=== PATIENT | female | born 1950 | race Caucasian/White ===

== ENCOUNTER 2024-10-08 08:20 | Emergency (ER) | payer MEDICARE, SELFPAY ==
--- OUTSIDE RECORDS SUMMARY | 2024-10-08 08:22 | XMS_ITS | Referral Summary ---
Author Organization [facility] [address] Address [address] [place] [address] Phone Care Team Providers Care Polishing Machine Tender Name Role Phone Winston Raygoza MD Primary Care Provider [phone] Medications levothyroxine sodium (TIROSINT) 112 mcg capsule take 1 capsule (112MCG) by oral route every day 0 04/19/2012 Active pravastatin (PRAVACHOL) 20 mg tablet Take 20 mg by mouth daily. Active alendronate (FOSAMAX) 35 mg tablet TAKE 1 TABLET BY MOUTH EVERY 7 DAYS TAKE IN THE MORNING WITH A FULL GLASS OF WATER, ON AN EMPTY STOMACH, AND DO NOT TAKE ANYTHING ELSE BY MOUTH OR LIE DOWN FOR THE NEXT 30 MIN. 12 tablet 3 09/18/2022 Active Active Problems Problem Noted Date Diagnosed Date Hypercholesterolemia 05/02/2013 Overview (10/14/2016): Hypercholesterolemia Hypothyroidism 05/02/2013 Overview (10/15/2016): Hypothyroid Osteopenia of thigh 05/02/2013 Overview (10/15/2016): Osteoporosis Social History Tobacco Use Types Packs/Day Years Used Date Smoking Tobacco: Former Smokeless Tobacco: Never Alcohol Use Standard Drinks/Week Comments No 0 (1 standard drink = 0.6 oz pur e alcohol) Comments No Sex and Gender Information Value Date Recorded Sex Assigned at Not on file Legal Sex Female 6:06 AM TRANSPORT ANALYST Gender Identity Not on file Sexual Orientation Not on file Occupation Industry Job Start Date Job End Date N/A Not on file Not on file Not on file Last Filed Vital Signs Vital Sign Reading Time Taken Comments Blood Pressure 132/70 06/27/2021 1:58 PM TRANSPORT ANALYST Pulse 73 04/03/2018 8:29 AM CDT Temperature 36.9 C (98.4 F) 04/03/2018 8:29 AM CDT Respiratory Rate 16 04/03/2018 8:29 AM CDT Oxygen Saturation 100% 04/03/2018 8:29 AM CDT Inhaled Oxygen Concentration - - Weight 80.7 kg (178 lb) 06/27/2021 1:58 PM TRANSPORT ANALYST Height 165.1 cm (5' 5 ) 06/27/2021 1:58 PM TRANSPORT ANALYST Body Mass Index 29.62 06/27/2021 1:58 PM TRANSPORT ANALYST Plan of Treatment Not on file Insurance [id number] [place] [address] MEDICARE MEDICARE COUNTS INCLUDE 234 BEDS AT THE [facility] Care Teams Polishing Machine Tender Relationship Specialty Start Date End Date Winston Raygoza MD [address] [place] [address] PCP - General 05/02/13
--- OUTSIDE RECORDS SUMMARY | 2024-10-08 08:22 | XMS_ITS | Continuity of Care Document ---
Author Organization [facility] Address [address] [place] [address] Phone Care Team Providers Care Historic Sites Supervisor Name Role Phone Abram Roy MD Unavailable Unavailable Allergies, Adverse Reactions, Alerts Substance Reaction Status Criticality No Known Allergies Active No Inform ation Medications Medication Instructions Dosage Effective Dates (start - stop) Status Comments pravastatin 40 mg tablet take 1 tablet by oral route every day 40 MG - Active Tirosint 125 mcg capsule take 1 capsule by oral route every day 125 MCG - Active Procedures Procedure Date Refraction Post-op Follow-up Visit No Charge Refraction No Charge Optomap Fundus Photos 020 After Cataract Laser Surgery Post-op Follow-up Visit No Charge Refraction Fundus Photography W/ Report After Cataract Laser Surgery Eye Exam & Treatment No Charge Refraction Post-op Follow-up Visit Post-op Follow-up Visit Remove Cataract, Post Op Care 8 Remove Cataract, Insert Lens,Comanaged J IOLMaster-Professional No Charge Refraction Post-op Follow-up Visit Post-op Follow-up Visit Remove Cataract, Post Op Care 7 Remove Cataract, Insert Lens,Comanaged D IOLMaster-Professional No Charge Orbscan No Charge IOL Master No Charge Refraction IOLMaster-Technical No Charge Orbscan Eye Exam, New Patient Eye Exam, New Patient Advance Directives Directive Yes / No Effective Date File Name No Information Encounters Encounter Description Practice Location Reason(s) For Visit Diagnoses Date Provider Providers Copied on Encounter [facility], [id number] [place] [address] [address], [place], [place], [id number], tel:[phone] [place] Professional 2 week s/p YAG PC (chief complaint) Encounter for examination following surgery 0 Kirill Valverde. [address] [place], [place], [id number], [place]. tel:[phone] Referring Provider: Meghan Ball, [address] [place], [address]. tel:[phone] [facility], [address], [place], [id number], [place] tel:[phone] [place] Professional YAG (chief complaint) Encounter for examination following surgeryOther secondary cataract, left eye 0 Kirill Valverde. [address] [facility] [place], [address], [place]. tel:[phone] Referring Provider: Abram Grace, [address] [facility] [place], [address] . tel:[phone] [facility], [address], [place], [place], [address], tel:[phone] [address] [place] Professional YAG PC (chief complaint) Presence of intraocular lensOther secondary cataract, right eyeOther secondary cataract, left eyeDrusen (degenerative ) of macula, right eye 0 Kirill Valverde. [address] [facility] [place], [address], [place]. tel:[phone] Referring Provider: Abram Grace, [address] [facility] A, [place], [address] . tel:[phone] [facility], [address], [place], [place], [address], [place] tel:[phone] DANII Professional 3 wk CE PO (chief complaint) Encounter for examination following surgery 8 Lizzy Christianson. [address] [place], [address], [place]. tel:[phone] Referring Provider: Meghan Ball, [address] [place] [address], [address]. tel:[phone] [facility], [address] [place] [address] [address], [place], [place], [id number], [place] [phone] [address] [place] Professional 1 WK PCIOL Post OP (chief complaint) No Information 8 Lizzy Christianson. [address] [place], [address], [place]. tel:[phone] Referring Provider: Meghan Ball, [address] [place], [address]. tel:[phone] [facility], [address], [place], [place], [address], [place] [phone] DANII Professional Post-Op (chief complaint) No Information 8 Lizzy Christianson. [address] [place], [address], [place]. tel:[phone] Referring Provider: Meghan Ball, [address] [place], [address]. tel:[phone] [facility], [address], [place], [place], [address], [place] tel: [facility] No Information 8 Lizzy Christianson. [address] [place], [place], [facility], [place]. tel:[phone] Referring Provider: Meghan Ball, [address] [place] [address], [address]. tel:[phone] [facility], [address] [place] [address] [address], [place], [place], [id number], tel: SEC [facility] No Information Lizzy Christianson. [address] [place], [place], [facility], [place]. tel:[phone] Referring Provider: Meghan Ball, [address] [place] [address], [facility]. tel:[phone] [facility], [address] [place] [address] [address], [place], [place], [address], [place] tel:[phone] [address] [place] Professional f/u exam, postop (chief complaint) No Information 7 Juan OD Disha. [address] [place], [address], [place]. tel:[phone] Referring Provider: Meghan Ball, [address] [place] [address], [facility]. tel:[phone] [facility], [address], [place], [place], [address], tel:[phone] [address] [place] Professional Post-Op (chief complaint) No Information 7 Juan SHERYL Gauthier. [address] [place] [address] [place], [address], [place]. tel:[phone] Referring Provider: Meghan Ball, [address] [place] [address], [address]. tel:[phone] [facility], [address], [place], [place], [address], [place] tel:[phone] [address] [place] Professional post op (chief complaint) No Information Dec-0 6 7 Juan Gauthier. [address] [facility], [place], [address], [place]. tel:[phone] Referring Provider: Meghan Ball, [address] [place], [address]. tel:[phone] [facility], [address], [place], [place], [address], [place] tel:[phone] [facility] No Information Jun-0 7 Lizzy Christianson. [address] [place], [address], [place]. tel:[phone] Referring Provider: Meghan Ball, [address] [place], [address]. tel:[phone] [facility], [address], [place], [place], [address], [place] tel:[phone] [facility] No Information Dec-0 7 Lizzy Christianson. [address] [place], [address], [place]. tel:[phone] Referring Provider: Meghan Ball, [address] [place], [address]. tel:[phone] [facility], [address], [place], [place], [address], [place] tel:[phone] [address] [place] Professional Testing only (chief complaint) No Information 7 Lizzy Christianson. [address] [place], [address], [place]. tel:[phone] Referring Provider: Meghan Ball, [address] [place], [address]. tel:[phone] [facility], [address] [facility] [address], [place], [place], [address], tel:[phone] [address] DANII Professional Cataract evaluation (chief complaint) No Information 3 0-201 7 Lizzy Christianson. [address] [place], [address], [place]. tel:[phone] Referring Provider: Meghan Ball, [address] [place], [address]. tel:[phone] [facility], [address] [facility] [address], [place], [place], [address], tel:[phone] SEC [address] DANII Professional No Information 3 0- 7 Lizzy Christianson. [address] [place], [address], [place]. tel:[phone] [facility], [address] [facility] [address], [place], [place], [address], tel:[phone] [address] FOY Professional No Information Jan-0 6-201 0 Deyanira Amaya. [address] [facility] [place], [address], . tel:[phone] Family History Family Member Type Diagnosis Age At Onset No Information Payers Payer name Insurance type Covered democrat ID Authoriza tion(s) No Information Social History Type Description Quantity Date Captured Comments Alcohol Use Details No Caffeine Use Details Tobacco Use Status Current non-smoker 20 Smoking Status Never smoker Non-Smoking Tobacco Use Details : No Details Available : No Details Available Sex Female Chief Complaint And Reason For Visit From encounter dated '04/12/2020 07:45'. 2 week s/p YAG PC (chief complaint). Description: The 70 year old female presents for evaluation of2 week s/p YAG PC in the left eye. Patient states VA is good she does have a floater in the left eye since the laser. Reason For Referral Reason For Referral No Information Plan Of Treatment Date Type Action Status Patient Education Learning About YAG Lase r Capsulotomy completed Patient Education Learning About YAG Lase r Capsulotomy completed History Of Present Illness Encounter Date Complaint History Of Prese nt Illness 2 week s/p YAG PC The 70 year ol d female presents for evaluation of 2 week s/p YAG PC in the left eye. Patient states VA is good she does have a floater in the left eye since the laser. YAG The 70 year old female presents for evaluation of YAG in the left eye and s/p YAG PC OD. Patient states VA is much better since the laser in the right eye. Patient states she is unable to drive at night due to VA in the left eye. Patient has trouble seeing road signs and seeing in bright lights x 1 year. YAG PC The 69 year old female presents for evaluation of YAG PC in the right eye and left eye. Hx of PCIOL OU and RPE mottling OS. Patient has difficulty seeing at night due to glare with both eyes x 1 year. Patient has difficulty seeing print on the television with both eyes x years. 3 wk CE PO The 67 year old female presents for 3 wk CE PO in the left eye. Pt reports she is using AFT QID OD, Ketorolac QID OS and Pred QD OS. Pt reports she can see a lot better, OS, since CE. Pt denies any pain, irritation or discomfort today, OU. 1 WK PCIOL Post OP The 67 year o ld female presents for 1 WK PCIOL Post OP in the left eye. PO instructions and gtts reviewed and understood by patient. Pt using Ketorolac qid and Pred tid. Pt states vision is doing fine. Pt denies any pain or discomfort at this time. Post-Op The 67 year old female presents for a 1 day post op CE OS. Patient is using Ofloxacin qid OS and begin Pred and Ketorolac qid OS. Patient c/o flashing light (temporaly) OS. Patient denies any pain or discomfort. f/u exam, postop The 67 year old female presents for a 3 week phaco and PCIOL postop in the right eye. The patient is currently using Pred QD OD and Ketorolac TID OD. The patient states OD is doing good and vision has significantly improved. The patient notes a large difference between the two eyes and complains of glare OS. Drop and post-op instructions reviewed. Post-Op The 67 year old female presents for a 1 week post op CE OD. Patient is using Pred tid and Ketorolac qid OD. Patient states OD is doing good. post op The 67 year old female presents for a 1 day post op CE OD. Patient is using Ofloxacin qid OD and begin Pred qid and Ketorolac qid OD. Patient denies any pain or discomfort. Testing only The 67 year old female presents for Testing only in the right eye and left eye. Repeat IOL Master and Pentacam. Cataract evaluation The 67 year old female presents for Cataract evaluation in the right eye and left eye. Pt reports she had eye Surgery, OS, to remove something that was growing on her eye, many years ago and CAT OU. Pt report she has never had any ocular injuries, doesn't use any gtts and no pain, irritation or discomfort today, OU. Pt reports she has a hard time driving at night due to glare from oncoming headlights, OU, x 3 mos. Pt reports she has a hard time reading small print up close, recognizing people's faces from across the street, OU even when she is wearing her glasses, OU, x 3 mos. Functional Status Date Functional Assessmen t No Information Instructions Date Instruction Additional Infor annalise Impression/Plan Impression/Plan Impression/Plan Impression/Plan - PO W 3 s/p CE/PCIOL OS. Doing well. Continue post op drops as instructed. Recommend artificial tears QID OU. Return to [facility] in 2 weeks for refraction and new glasses. Discussed PCO and Yag PC as treatment if ever indicated in the future. RTC 6 mths for CEE or sooner with problems. Follow up - Return i n 6 months with Meghan Ball M.D. for Complete Exam. Follow up - as scheduled Impression/Plan - On e week post-op s/p CE/PCIOL OS- IOL in good position; healing well; IOP well controlled. - Activities restrictions reviewed. - Medication instillation and post op instructions reviewed. - Patient will return as scheduled or sooner with problems. Follow up - as scheduled Impression/Plan - PO D 1 s/p CE/PCIOL OS Doing well. IOP well controlled. Patient understands light is likely edge of IOL and will improve over time. Post op med instructions reviewed with pt, and post op instructions discussed. Discussed warning signs and symptoms and need for immediate exam should these occur. Pt understands shield use, return to clinic for post op exam as scheduled. Continue with CE OS on 07/13 as sc heduled Related to Encntr for f/u exam aft trtmt for cond oth than malig neoplm Encntr for f/u exam aft trtmt for cond oth than malig neoplm - Medication use reviewed Related to Encntr for f/u exam aft trtmt for cond oth than malig neoplm Encntr for f/u exam aft trtmt for cond oth than malig neoplm - Post op instructions reviewed and understood by patient Related to Encntr for f/u exam aft trtmt for cond oth than malig neoplm Impression/Plan - Th ree week post-op s/p CE/PCIOL OD- IOL in great position; healing well- IOP well controlled- Activities restrictions and shield use reviewed- Medication instillation and post op instructions reviewed- Okay to continue with CE OS on 07/13- Patient will return as scheduled, sooner if any problems.Dry Eye OD > OS- Discussed the use of ATs PRN OD once all post-op drops are complete- Sample of ATs given- Monitor Related to Encntr for f/u exam aft trtmt for cond oth than malig neoplm Follow up - Continue with CE OS on 07/13 as scheduled Related to Encntr for f/u exam aft trtmt for cond oth than malig neoplm Return as scheduled, sooner if p roblems Related to Encntr for f/u exam aft trtmt for cond oth than malig neoplm Encntr for f/u exam aft trtmt for cond oth than malig neoplm - Post op instructions reviewed and understood by patient Related to Encntr for f/u exam aft trtmt for cond oth than malig neoplm Impression/Plan - On e week post-op s/p CE/PCIOL OD- IOL in great position; healing well- IOP well controlled- Activities restrictions and shield use reviewed- Medication instillation and post op instructions reviewed- Patient will return as scheduled, sooner if any problems. Related to Encntr for f/u exam aft trtmt for cond oth than malig neoplm Follow up - Return a s scheduled, sooner if problems Related to Encntr for f/u exam aft trtmt for cond oth than malig neoplm Return to clinic as scheduled or sooner with problems. Related to Encntr for f/u exam aft trtmt for cond oth than malig neoplm Encntr for f/u exam aft trtmt for cond oth than malig neoplm - Medication use reviewed Related to Encntr for f/u exam aft trtmt for cond oth than malig neoplm Encntr for f/u exam aft trtmt for cond oth than malig neoplm - Post op instructions reviewed and understood by patient Related to Encntr for f/u exam aft trtmt for cond oth than malig neoplm Impression/Plan - 1 Day Post-Op s/p phaco and PCIOL OD- PCIOL in good position.- Patient is healing well.- Vision and IOP stable.- Discussed continued improvement in vision as eye continues to heal.- Medication instillation, shield use and restrictions reviewed with patient.- Return to clinic as scheduled or sooner with problems. Related to Encntr for f/u exam aft trtmt for cond oth than malig neoplm Follow up - Return t o clinic as scheduled or sooner with problems. Related to Encntr for f/u exam aft trtmt for cond oth holli mckenzie Impression/Plan - Ca taracts surgery measurements reviewed with patient- Discussed R/B/A of CE at last visit and answered additional questions today- Lifestyle lens options discussed- Discussed that after running calculations I would not recommend a toric, but we can consider a LRI post-op. - Patient aware she will need reading glasses- Schedule OD first and OS following Repeat OCT MAC, IOL master, and refraction Related to Combined forms of age-related cataract, right eye Combined forms of ag e-related cataract, right eye - Educational material provided Related to Combined forms of age-related cataract, right eye Impression/Plan - Ca taract presence and progression discussed. Cataracts account for the patients complaints. Discussed all risks, benefits, procedures and recovery. Vision will not significantly improve with a change in glasses and we recommend not changing. The patient understands this is an elective procedure and may proceed when desired. The patients questions were answered and demonstrates understanding of our discussion. Patient desires to have surgery, recommend phacoemulsification with intraocular lens. Discussed astigmatism with pt. Standard monofocal IOL.- Visually significant cataracts OU- Will plan on CE OD first then OS following - Dilates 7.5 mm OD and 7.0 mm OS- No trauma, Hx of Pterygium removal OD - No ASA/Plavix/Coumadin- No Flomax- No History of DM, HTN, COPD, Asthma, RLS, BURAK- Able to lay flat for 30 minutes- Special considerations for cataract surgery: topical- Special considerations for lens: will discuss at next visit- Return in 2 weeks for repeat measurements, IOL master, Pentacam, and OCT MAC after using Artificial tears Related to Combined forms of age-related cataract, right eye Impression/Plan - Co ndition appears to be mild. Treatment not needed at this time. Will monitor. Related to RPE mottling of macula Follow up - Return i n 2 weeks for repeat measurements IOL master, Pentacam and OCT MAC Related to Combined forms of age-related cataract, right eye Impression/Plan - Re commend artificial tears or gel ointment QID for dry eyes. Related to Dry eye syndrome of bilateral lacrimal glands Assessments Type Assessment Date assessment Encounter for examination follow ing surgery Patient Care Teams Name Effective Dates (start - stop) Status Members No Information
--- OUTSIDE RECORDS SUMMARY | 2024-10-08 08:22 | XMS_ITS | Clinical Summary ---
Author Organization [facility] [address] Address [address] [place] [address] Phone Care Team Providers Care Director Embalmer Name Role Phone Winston Raygoza MD Primary Care Provider [phone] Medications levothyroxine sodium (TIROSINT) 112 mcg capsule [...] Osteopenia of thigh 05/02/2013 Overview (10/15/2016): Osteoporosis Surgical History Surgery Date Site/Laterality Comments TUBAL LIGATION Tubal ligation CATARACT EXTRACTION 06/11/2017 - 07/11/2017 Medical History Medical History Date Comments Thyroid disease High cholesterol Family History Medical History Relation Name Comments Dementia Father Dementia; Allergies Other 1 Family history of Allergies; Other Other 2 No family histo ry of breast cancer; Relation Name Status Comments Father Other 1 Other 2 Social History Tobacco Use Types Packs/Day Years Used Date Smoking Tobacco: Former Smokeless Tobacco: Never Alcohol Use Standard Drinks/Week Comments No 0 (1 standard drink = 0.6 oz pur e alcohol) Comments No Sex and Gender Information Value Date Recorded Sex Assigned at Not on file Legal Sex Female 6:06 AM GROUND SUPPORT EQUIPMENT FITTER Gender Identity Not on file Sexual Orientation Not on file Occupation Industry Job Start Date Job End Date N/A Not on file Not on file Not on file Obstetrics History Para Term AB IAB SAB Ectopic Multiple Livin g Live Births 1 1 1 0 0 1 Date Outcome GA Total Labor Labor/2nd/3rd Weight Sex Type Anes PTL Wendy A1 A5 Name Clin Term Last Filed Vital Signs Vital Sign Reading Time Taken Comments Blood Pressure 132/70 06/27/2021 1:58 PM GROUND SUPPORT EQUIPMENT FITTER Pulse 73 04/03/2018 8:29 AM CDT Temperature 36.9 C (98.4 F) 04/03/2018 8:29 AM CDT Respiratory Rate 16 04/03/2018 8:29 AM CDT Oxygen Saturation 100% 04/03/2018 8:29 AM CDT Inhaled Oxygen Concentration - - Weight 80.7 kg (178 lb) 06/27/2021 1:58 PM GROUND SUPPORT EQUIPMENT FITTER Height 165.1 cm (5' 5 ) 06/27/2021 1:58 PM GROUND SUPPORT EQUIPMENT FITTER Body Mass Index 29.62 06/27/2021 1:58 PM GROUND SUPPORT EQUIPMENT FITTER Plan of Treatment Not on file Insurance [facility] MEDICARE MEDICARE [facility] Care Teams Director Embalmer Relationship Specialty Start Date End Date Winston Raygoza MD [address] [place] [address] PCP - General 05/02/13
--- OUTSIDE RECORDS SUMMARY | 2024-10-08 08:22 | XMS_ITS | Encounter Summary ---
Author Organization [facility] Address [address] [place] [address] Phone Care Team Providers Care Video Game Creator Name Role Phone Winston Raygoza MD Primary Care Provider [phone] Reason for Visit * Reason Comments Medication Refill Encounter Details Date Type Department Care Team (Late st Contact Info) Description 12/12/2023 Refill [facility] - Internal Medicine - [place] [address] [place] [phone] Winston Raygoza MD [address] [place] [address] Medication Refill Social History Tobacco Use Types Packs/Day Years Used Date Smoking Tobacco: Never Passive Smoke Exposure: Never Smokeless Tobacco: Never Alcohol Use Standard Drinks/Week Comments Never 0 (1 standard drink = 0.6 oz pur e alcohol) [facility] Utilities Answer Date Recorded In the past 12 months has [employer], gas, oil, or water [employer] threatened to shut off services in your home? No 08/05/2023 Social Connection and Isolat ion Panel [NHANES] Answer Date Recorded In a typical week, how many times do you talk on the phone with family, friends, or neighbors? More than three times a week 08/05/2023 How often do you get togethe r with friends or relatives? More than three times a week 08/05/2023 How often do you attend [facility] or rastafari services? More than 4 times per year 08/05/2023 Do you belong to any clubs o r organizations such as yarsanism groups, unions, fraternal or athletic groups, or school groups? No 08/05/2023 How often do you attend meet ings of the clubs or organizations you belong to? More than 4 times per year 08/05/2023 Are you , , di vorced, , never , or living with a partner? 08/05/2023 AUDIT-C Answer Date Recorded Q1: How often do you have a drink containing alcohol? Never 08/05/2023 Q2: How many drinks containi ng alcohol do you have on a typical day when you are drinking? Patient does not drink Q3: How often do you have si x or more drinks on one occasion? Never 08/05/2023 Overall Financial Resource Strain (CARDIA) Answe r Date Recorded How hard is it for you to pa y for the very basics like food, housing, medical care, and heating? Not hard at all 08/05/2023 PHQ-2 Answer Date Recorded Total Score - Questions 1-9 0 07/13 [facility] of Occupat ional Health - Occupational Stress Questionnaire Answer Date Recorded Do you feel stress - tense, restless, nervous, or anxious, or unable to sleep at night because your mind is troubled all the time - these days? Not at all 08/05/2023 Exercise Vital Sign Answer Date Recorde d On average, how many days pe r week do you engage in moderate to strenuous exercise (like a brisk walk)? 0 days 08/05/2023 On average, how many minutes do you engage in exercise at this level? 0 min 08/05/2023 Hunger Vital Sign Answer Date Recorded Within the past 12 months, y ou worried that your food would run out before you got the money to buy more. Never true 08/05/19 24 Within the past 12 months, t he food you bought just didn't last and you didn't have money to get more. Never true 08/05/2023 PRAPARE - Transportation Answer Date Re corded In the past 12 months, has l ack of transportation kept you from medical appointments or from getting medications? No 07/13 In the past 12 months, has l ack of transportation kept you from meetings, work, or from getting things needed for daily living? No 08/05/2023 Housing Stability Vital Sign Answer Andrew e Recorded In the last 12 months, was t here a time when you were not able to pay the mortgage or rent on time? No 08/05/2023 In the last 12 months, how many places have you lived? 1 08/05/2023 In the last 12 months, was t here a time when you did not have a steady place to sleep or slept in a skilled nursing (including now)? No 08/05/2023 Sexually Active Control Partners Comments Not Currently Comments No Sex and Gender Information Value Date Recorded Sex Assigned at Not on file Legal Sex Female 9:50 PM CDT Gender Identity Not on file Sexual Orientation Not on file documented as of this encounter Miscellaneous Notes * Telephone Encounter - Esthela Jimenez RN - 12/13/2023 9:23 AM CDT Medication(s) refilled and signed per [facility] Chronic Medication Refill Standing Order for Pediatricand Adult Patients. Requested Prescriptions Pending Prescriptions Disp Refills levothyroxine (SYNTHROID) 100 MCG Tablet [Pharmacy Med Name: LEVOTHYROXINE 100 MCG TABLET] 90 Tablet 0 Sig: TAKE 1 TABLET BY MOUTH EVERY DAY Thyroid Hormones Protocol Passed - 12/12/2023 7:32 AM Passed - Visit with relevant provider in past 12 months or upcoming 90 days Recent Visits Date Type Provider Dept 08/05/23 Office Visit Winston Raygoza MD [facility] 02/02/23 Office Visit Winston Raygoza MD [facility] [place] Showing recent visits within past 365 days and meeting all other requirements Future Appointments Date Type Provider Dept 02/03/24 Appointment Winston Raygoza MD [facility] Showing future appointments within next 90 days and meeting all other requirements Passed - Normal TSH in past 12 months TSH Date Value Ref Range Status 01/09/2023 2.230 0.270 - 4.200 mIU/L Final documented in this encounter Plan of Treatment Upcoming Encounters Date Type Department Care Team (Late st Contact Info) Description 10/27/2024 9:30 AM CDT [facility]ointment [facility] [address] [place] [address] Winston Raygoza MD [address] [place] [address] Discharge Disposition: Discharged to home or Selfcare 02/05/2025 8:30 AM CDT [facility] - [facility] - [place] [address] [place] [address] Winston Raygoza MD [address] [place] [address] documented as of this encounter Visit Diagnoses Not on filedocumented in this encounter Additional Health Concerns Assessment Noted Time PHQ-9 Depression Total Score: 0 08/05/19 24 8:03 AM BOBBIN WINDER documented as of this encounter Care Teams Video Game Creator Relationship Specialty Start Date End Date Winston Raygoza MD [address] [place] [address] PCP - General Internal Medicine 06/15/15 documented as of this encounter
--- OUTSIDE RECORDS SUMMARY | 2024-10-08 08:22 | XMS_ITS | Encounter Summary ---
Author Organization [facility] Address [address] [place] [address] Phone Care Team Providers Care Mold Stamper And Repairer Name Role Phone Winston Raygoza MD Primary Care Provider [phone] Reason for Visit * Reason Comments Medication Refill Encounter Details Date Type Department Care Team (Late st Contact Info) Description 12/22/2023 Refill [facility] - [place] - [place] [address] [place] [phone] Winston Raygoza MD [address] [place] [address] Medication Refill Social History Tobacco Use Types Packs/Day Years Used Date Smoking Tobacco: Never Passive Smoke Exposure: Never Smokeless Tobacco: Never Alcohol Use Standard Drinks/Week Comments Never 0 (1 standard drink = 0.6 oz pur e alcohol) [facility] Utilities Answer Date Recorded In the past 12 months has [employer], gas, oil, or water [employer] threatened to shut off services in your [...] week 08/05/2023 How often do you attend [facility] or mosque services? More than 4 times per year 08/05/2023 Do you belong to any clubs o r organizations such as restorationist groups, unions, fraternal or athletic groups, or [...] Total Score - Questions 1-9 0 07/13 [facility] of Occupat ional Health - Occupational Stress [...] place to sleep or slept in a intermediate (including now)? No 08/05/2023 Sexually Active Control Partners Comments Not Currently Comments No Sex and Gender Information Value Date Recorded Sex Assigned at Not on file Legal Sex Female 9:50 PM CDT Gender Identity Not on file Sexual Orientation Not on file documented as of this encounter Miscellaneous Notes * Telephone Encounter - Esthela Jimenez RN - 12/22/2023 3:53 PM CDT Medication(s) refilled and signed per [facility] Chronic Medication Refill Standing Order for Pediatricand Adult Patients. Requested Prescriptions Pending Prescriptions Disp Refills pravastatin (PRAVACHOL) 40 MG Tablet [Pharmacy Med Name: PRAVASTATIN SODIUM 40 MG TAB] 90 Tablet 0 Sig: TAKE 1 TABLET BY MOUTH EVERY DAY AT NIGHT Hmg CoA Reductase Inhibitors Protocol Passed - 12/22/2023 3:09 PM Passed - Visit with relevant provider in past 12 months or upcoming 90 days Recent Visits Date Type Provider Dept 08/05/23 Office Visit Winston Raygoza MD [facility] 02/02/23 Office Visit Winston Raygoza MD [facility] [place] Showing recent visits within past 365 days and meeting all other requirements Future Appointments Date Type Provider Dept 02/03/24 Appointment Winston Raygoza MD [facility] Showing future appointments within next 90 days and meeting all other requirements Passed - Lipid panel in past 12 months LDL Date Value Ref Range Status 01/09/2023 151 (H) 5 - 130 mg/dL Final HDL CHOLESTEROL Date Value Ref Range Status 01/09/2023 55.0 >40 mg/dL Final CHOLESTEROL Date Value Ref Range Status 01/09/2023 235 (H) <=200 mg/dL Final TRIGLYCERIDES Date Value Ref Range Status 01/09/2023 143 <150 mg/dL Final VLDL Date Value Ref Range Status 01/09/2023 29 5 - 55 mg/dL Final CHOL/HDL RATIO Date Value Ref Range Status 01/09/2023 4.3 0.0 - 4.4 Final NON-HDL CHOLESTEROL Date Value Ref Range Status 01/09/2023 180 (H) <130 mg/dL Final Passed - CMP in past 12 months SODIUM Date Value Ref Range Status 01/09/2023 143 136 - 144 mmol/L Final POTASSIUM Date Value Ref Range Status 01/09/2023 3.8 3.5 - 5.1 mmol/L Final CHLORIDE Date Value Ref Range Status 01/09/2023 108 100 - 110 mmol/L Final CO2, VENOUS Date Value Ref Range Status 01/09/2023 26 22 - 32 mmol/L Final ANION GAP Date Value Ref Range Status 01/09/2023 12.8 8.0 - 20.0 mmol/L Final GLUCOSE Date Value Ref Range Status 01/09/2023 100 (H) 70 - 99 mg/dL Final BUN Date Value Ref Range Status 01/09/2023 13 8 - 23 mg/dL Final CREATININE, BLOOD Date Value Ref Range Status 01/09/2023 0.74 0.60 - 1.10 mg/dL Final BUN/CREATININE RATIO Date Value Ref Range Status 01/09/2023 18 12 - 20 ratio Final TOTAL PROTEIN Date Value Ref Range Status 01/09/2023 6.6 6.0 - 8.3 g/dL Final ALBUMIN Date Value Ref Range Status 01/09/2023 4.2 3.5 - 5.2 g/dL Final Comment: The colormetric methods used for the determination of Albumin may lead to falsely elevated test results in patients suffering from renal failure or insufficiency due to interference with other proteins. A/G RATIO Date Value Ref Range Status 01/09/2023 1.8 1.0 - 2.0 Final CALCIUM Date Value Ref Range Status 01/09/2023 8.9 8.9 - 10.3 mg/dL Final T BILI Date Value Ref Range Status 01/09/2023 0.8 <=1.2 mg/dL Final SGOT (AST) Date Value Ref Range Status 01/09/2023 14 <=32 U/L Final SGPT (ALT) Date Value Ref Range Status 01/09/2023 11 <=41 U/L Final ALKALINE PHOSPHATASE Date Value Ref Range Status 01/09/2023 48 35 - 105 U/L Final GFR, EST. NONAFRICAN Date Value Ref Range Status 01/09/2023 >60 >=60 Final GFR, EST. Date Value Ref Range Status 01/09/2023 >60 >=60 Final GFR, ESTIMATED Date Value Ref Range Status 01/09/2023 >60 >=60 Final Comment: Creatinine Clearance is the preferred criteria for selecting drug dose adjustments in renally impaired patients. The GFR is provided as additional pertinent clinical information. GFR is reported in mL/min/1.73 sq m. Calculation based on the Chronic Kidney Disease Epidemiology Collaboration (CKD- EPI) equation refitwithout adjustment for race. IS THE PATIENT REQUIRED TO BE FASTING? Date Value Ref Range Status 01/09/2023 No Final documented in this encounter Plan of Treatment Upcoming Encounters Date Type Department Care Team (Late st Contact Info) Description 10/27/2024 9:30 AM CDT [facility] [address] [place] [address] Winston Raygoza MD [address] [place] [address] Discharge Disposition: Discharged to home or Selfcare 02/05/2025 8:30 AM CDT [facility] - [place] [address] [place] [address] Winston Raygoza MD [address] [place] [address] documented as of this encounter Visit Diagnoses Not on filedocumented in this encounter Additional Health Concerns Assessment Noted Time PHQ-9 Depression Total Score: 0 08/05/19 24 8:03 AM HEALTHCARE REPRESENTATIVE documented as of this encounter Care Teams Mold Stamper And Repairer Relationship Specialty Start Date End Date Winston Raygoza MD [address] [place] [address] PCP - General Internal Medicine 06/15/15 documented as of this encounter
--- OUTSIDE RECORDS SUMMARY | 2024-10-08 08:22 | XMS_ITS | Encounter Summary ---
Author Organization [facility] Address [address] [place] [address] Phone Care Team Providers Care Furniture Sales Associate Name Role Phone Winston Raygoza MD Primary Care Provider Reason for Visit * Reason Comments Medication Refill Encounter Details Date Type Department Care Team (Late st Contact Info) Description 09/20/2023 Refill [facility] Medical Group - Internal Medicine - [place] [address] [place] [phone] Winston Raygoza MD [address] [place] [address] Medication Refill Social History Tobacco Use Types Packs/Day Years Used Date Smoking Tobacco: Never Passive Smoke Exposure: Never Smokeless Tobacco: Never Alcohol Use Standard Drinks/Week Comments Never 0 (1 standard drink = 0.6 oz pur e alcohol) [facility] Utilities Answer Date Recorded In the past 12 months has [employer] gas, oil, or water [employer] threatened to shut off services in your [...] week 08/05/2023 How often do you attend [facility] or orthodox services? More than 4 times per year 08/05/2023 Do you belong to any clubs o r organizations such as buddhist groups, unions, fraternal or athletic groups, or [...] Total Score - Questions 1-9 0 07/13 [facility] of Occupat ional Health - Occupational [...] place to sleep or slept in a fdc (including now)? No 08/05/2023 Sexually Active Control Partners Comments Not Currently Comments No Sex and Gender Information Value Date Recorded Sex Assigned at Not on file Legal Sex Female 9:50 PM CDT Gender Identity Not on file Sexual Orientation Not on file documented as of this encounter Miscellaneous Notes * Telephone Encounter - Esthela Jimenez RN - 09/20/2023 9:23 AM CDT Medication(s) [facility] Chronic Medication Refill Standing Order for Pediatricand Adult Patients. Requested Prescriptions Pending Prescriptions Disp Refills pravastatin (PRAVACHOL) 40 MG Tablet [Pharmacy Med Name: PRAVASTATIN SODIUM 40 MG TAB] 90 Tablet 0 Sig: TAKE 1 TABLET BY MOUTH EVERY DAY AT NIGHT Hmg CoA Reductase Inhibitors Protocol Passed - 09/20/2023 12:01 AM Passed - Visit with relevant provider in past 12 months or upcoming 90 days Recent Visits Date Type Provider Dept 08/05/23 Office Visit Winston Raygoza MD [facility] [place] 02/02/23 Office Visit [facility] MD [facility] [place] Showing recent visits within past 365 days and meeting all other requirements Future Appointments No visits were found meeting these conditions. Showing future appointments within next 90 days [...] Info) Description 10/27/2024 9:30 AM CDT Appointment [facility] [address] [place] [address] Winston Raygoza MD [address] [place] [address] Discharge Disposition: Discharged to home or Selfcare 02/05/2025 8:30 AM CDT Office Visit [facility] Medical Group - Internal Medicine - [place] [address] [place] [address] Winston Raygoza MD [address] [place] [address] documented as of this encounter Visit Diagnoses Not on filedocumented in this encounter Additional Health Concerns Assessment Noted Time PHQ-9 Depression Total Score: 0 08/05/19 24 8:03 AM LIFE SKILLS CONSULTANT documented as of this encounter Care Teams Furniture Sales Associate Relationship Specialty Start Date End Date Winston Raygoza MD [address] [place] [address] PCP - General Internal Medicine 06/15/15 documented as of this encounter
--- OUTSIDE RECORDS SUMMARY | 2024-10-08 08:22 | XMS_ITS | Clinical Summary ---
Author Organization [facility] Address [address] [place] [address] Phone Care Team Providers Care Technology Auditor Name Role Phone Winston Raygoza MD Primary Care Provider [phone] Allergies No known active allergies Medications levothyroxine (SYNTHROID) 100 MCG Tablet TAKE 1 TABLET BY MOUTH EVERY DAY 90 Tablet 1 03/14/2024 Active celecoxib (CeleBREX) 200 MG Capsule Take 200 mg by mouth daily. Active atorvastatin (LIPITOR) 40 MG Tablet TAKE 1 TABLET BY MOUTH EVERY DAY AT NIGHT 90 Tablet 08/03/2024 Active alendronate (FOSAMAX) 70 MG Tablet Take 1 Tablet by mouth every 7 days. 12 Tablet 3 08/07/2024 Active Vitamin D3 1000 UNIT Tablet Take 25 mcg by mouth daily. Active Calcium Carbonate-Vitam in D (OSCAL 500/200 D-3 PO) Take 1 Tablet by mouth daily. Active omeprazole (PriLOSEC) 20 MG CAPSULE DELAYED RELEASE TAKE 1 CAPSULE BY MOUTH EVERY DAY 90 Capsule 09/01/2024 Active Active Problems Problem Noted Date Diagnosed Date Spinal stenosis of lumbar re gion without neurogenic claudication 06/14/2024 Chronic hand pain, left 02/02/2023 Low bone mass 01/13/2022 GERD without esophagitis 06/21/2020 Mixed hyperlipidemia 12/05/2010 Hypothyroidism 12/05/2010 Resolved Problems Problem Noted Date Diagnosed Date Resolved Date Dysthymia 07/15/2022 08/07/2024 Generalized anxiety disorder 06/01/2017 01/13/2022 Encounters Date Type Department Care Team Description 09/01/2024 Refill [facility] [address] [place] [address] Winston Raygoza MD Medication Refill 08/07/2024 8:15 AM WOOD MECHANIST Office Visit [facility] [address] [place] [address] Winston Raygoza MD Mixed hyperlipidemia (Primary Dx); Osteopenia, unspecified location; Asymptomatic menopausal state; GERD without esophagitis; Other specified hypothyroidism Discharge Disposition: Discharged to home or Selfcare 08/07/2024 Travel 08/03/[facility] [address] [place] [phone] Winston Raygoza MD Medication Refill from Last 3 Months Immunizations Immunization Administration Dates Next Due COVID-19, MRNA, LNP-S, BIVAL ENT , MODERNA, 50 MCG/0.5 ML (12+) 04/19/2023 COVID-19, MRNA, LNP-S, BIVAL ENT , PFIZER, 30 MCG/0.3 ML (12+ Y/O) 03/29/2022 Covid-19, Mrna, Lnp-s, Pf, 3 0 Mcg/0.3 Ml Dose (Pfizer) 03/30/2022 Covid-19, Mrna, Lnp-s, Pf, Yannick-sucrose, 30 Mcg/0.3 Ml (Pfizer) 03/19/2024 Influenza, High-dose, Quadrivalent 03/30,03/29/2022,04/06/2021,2019 Influenza, Quadrivalent, Adjuvanted 04/19/2023 Influenza, high-dose, trivalent, PF 02/2024,04/12/2020,04/12/2020,2018,04/04/2019,04/25/2018,04/24/2018,1 ,04/17/2017,03/31/2016 Pneumococcal Vaccine - 13 Valent 03/31/2016,06/11 Pneumococcal Vaccine Adult - 23 Valent 06/27/2021,06/21/2015 RSV, Recombinant, Protein Bonilla bunit Rsvpref, Adjuvant Recon (Arexvy) 04/19/2023 TDAP Vaccine 09/27/2022 Zoster Vaccine Recombinant 09/27/2022,07/25/2022 Zoster Vaccine, live 2015 Family History Medical History Relation Name Comments No Known Problems Father No Known Problems Mother Relation Name Status Comments Brother Alive Father Mother Sister Alive Social History Tobacco Use Types Packs/Day Years Used Date Smoking Tobacco: Never Passive Smoke Exposure: Never Smokeless Tobacco: Never Tobacco Cessation:Counseling Given: Not Answered Alcohol Use Standard Drinks/Week Comments Never 0 (1 standard drink = 0.6 oz pur e alcohol) [facility] Utilities Answer Date Recorded In the past 12 months has th e electric, gas, oil, or water company threatened to shut off services in your home? No 08/07/2024 Social Connection and Isolat ion Panel [NHANES] Answer Date Recorded In a typical week, how many times do you talk on the phone with family, friends, or neighbors? More than three times a week 08/07/2024 How often do you get togethe r with friends or relatives? Once a week 08/07/2024 Attends [employer] Not on file 08/07 Active Member of Clubs or Organizations Not on f ile 08/07/2024 Attends Club or Organization Meetings Not on tamiko e 08/07/2024 Marital Status Not on file 08/07/2024 AUDIT-C Answer Date Recorded Q1: How often do you have a drink containing alcohol? Never 08/07/2024 Q2: How many drinks containi ng alcohol do you have on a typical day when you are drinking? Patient does not drink Frequency of Binge Drinking Not on file 07/13 Overall Financial Resource Strain (CARDIA) Answe r Date Recorded How hard is it for you to pa y for the very basics like food, housing, medical care, and heating? Not hard at all 08/07/2024 PHQ-2 Answer Date Recorded Total Score - Questions 1-9 0 07/13 [facility] [place] of Occupat ional Health - Occupational Stress Questionnaire Answer Date Recorded Do you feel stress - tense, restless, nervous, or anxious, or unable to sleep at night because your mind is troubled all the time - these days? Not at all 08/07/2024 Exercise Vital Sign Answer Date Recorde d On average, how many days pe r week do you engage in moderate to strenuous exercise (like a brisk walk)? 3 days 08/07/2024 On average, how many minutes do you engage in exercise at this level? 20 min 08/07/2024 Hunger Vital Sign Answer Date Recorded Within the past 12 months, y ou worried that your food would run out before you got the money to buy more. Never true 08/07/19 Within the past 12 months, t he food you bought just didn't last and you didn't have money to get more. Never true 08/07/2024 PRAPARE - Transportation Answer Date Re corded In the past 12 months, has l ack of transportation kept you from medical appointments or from getting medications? No 07/13 In the past 12 months, has l ack of transportation kept you from meetings, work, or from getting things needed for daily living? No 08/07/2024 Housing Stability Vital Sign Answer Andrew e [...] place to sleep or slept in a senior care (including now)? No 08/05/2023 Housing Stability Vital Sign Answer Andrew e Recorded In the last 12 months, was t here a time when you were not able to pay the mortgage or rent on time? No 08/07/2024 In the past 12 months, how m any times have you moved where you were living? 0 08/07/2024 At any time in the past 12 m [facility], were you homeless or living in a senior care (including now)? No 08/07/2024 Sexually Active Control Partners Comments Not Currently Comments No Sex and Gender Information Value Date Recorded Sex Assigned at Not on file Legal Sex Female 9:50 PM CDT Gender Identity Not on file Sexual Orientation Not on file Last Filed Vital Signs Vital Sign Reading Time Taken Comments Blood Pressure 128/72 08/07/2024 8:22 AM WOOD MECHANIST Pulse 76 08/07/2024 8:22 AM WOOD MECHANIST Temperature 36.4 C (97.6 F) 08/07/2024 8:22 AM WOOD MECHANIST Respiratory Rate 12 08/07/2024 8:22 AM WOOD MECHANIST Oxygen Saturation 97% 08/07/2024 8:22 AM WOOD MECHANIST Inhaled Oxygen Concentration - - Weight 80.1 kg (176 lb 9.6 oz) 08/07/2024 8:22 A M WOOD MECHANIST Height 165.1 cm (5' 5 ) 08/07/2024 8:22 AM WOOD MECHANIST Body Mass Index 29.39 08/07/2024 8:22 AM WOOD MECHANIST Plan of Treatment Upcoming Encounters Date Type Department Care Team (Late st Contact Info) Description 10/27/2024 9:30 AM CDT Appointment [facility] Mammography [address] [place] [address] Winston Raygoza MD [address] [place] [address] Discharge Disposition: Discharged to home or Selfcare 02/05/2025 8:30 AM CDT [facility] [place] [address] [place] [address] Winston Raygoza MD [address] [place] [address] Health Maintenance Due Date Last Done Comments Hepatitis C Virus (HCV) Screening 1950 Cologuard 2000 Immunochemical Fecal Occult Blood 2000 DEXA Bone Density 08/08/2023 08/08/2021, , 06/29/2017 SARS-COV-2 Immunization ( season) 2024 03/19/2024, 04/19/2023, 03/30/2022, Additional history exists Mammogram 07/06/2025 07/06/2024, 10/0 09/2022, 06/27/2021, Additional history exists Colonoscopy 12/15/2025 12/16/2015 Colorectal Cancer Screening 12/15/2025 Td Immunization Every 10 Years (Adults With 1 Tdap) 09/27/2032 09/27/2022 Pneumococcal Immunization (50+ years) Completed 06/27/2021, 03/31/2016, 06/21/2015, Additional history exists Pneumococcal Immunization Combined Discontinued 06/27/2021, 03/31/2016, 06/21/2015, Additional history exists DTaP/Tdap/Td Immunization Discontinued 09/27/2022 Zoster Immunization Completed 09/27/2022, 07/25/2022, 2015 Respiratory Syncytial Virus (RSV) Immunization (Adult) Completed 04/19/2023 Influenza Immunization Completed , 04/19/2023, 03/30/2022, Additional history exists Hepatitis B Immunization Aged Out No longer eligible based on patient's age to complete this topic Meningococcal Immunization (ACWY) Aged Out No longer eligible based on patient's age to complete this topic Rotavirus Immunization Aged Out No lo nger eligible based on patient's age to complete this topic Procedures Procedure Name Priority Date/Time Associated Diagnosis Comments [facility] SCREENING BILATERAL DIGITAL W CAD W CHECO Routine 07/06/2024 7:50 AM WOOD MECHANIST Encounter for screening mammogram for malignant neoplasm of breast [facility] BONE DENSITOMETRY AXIAL SKELETON Routine 08/08/2021 12:00 AM WOOD MECHANIST Osteopenia of thigh, unspecified laterality Other specified disorders of bone density and structure, other site from Last 3 Months or Most Recently Relevant to Health Maintenance Results * [facility] SCREENING BILATERAL DIGITAL W CAD W CHECO (07/06/2024 7:50 AM WOOD MECHANIST) Anatomical Region Laterality Modality breast Bilateral Mammography 07/06/2024 7:53 AM WOOD MECHANIST Narrative 07/06/2024 10:55 AM WOOD MECHANIST - [facility] SCREENING BILATERAL DIGITAL W CAD W CHECO BILATERAL DIGITAL SCREENING MAMMOGRAM 3D/2D WITH CAD WITH MEDIOLATERAL OBLIQUE CRANIOCAUDAL: 07/06/2024 The study was acquired using digital technology and interpreted from soft copy. Current study was also evaluated with ICAD version 7.2. 2D digital mammographic views, as well as 3D digital tomosynthesis were performed in the CC and MLO projections. CLINICAL: Routine screening. Patient has no complaints. No personal history of cancer. Maternal aunt had breast cancer. COMPARISONS: Comparison is made to exams [facility]: [facility], [facility], and [facility] BREAST TISSUE:The breasts are heterogeneously dense, which may obscure small masses. FINDINGS: No significant masses, calcifications, or other findings are seen in either breast. There has been no significant interval change. IMPRESSION: NEGATIVE There is no mammographic evidence of malignancy. A 1 year screening mammogram is recommended. A letter will be sent to the patient with these results. The patient will be entered into a reminder system with a target due date of 1 year for her next screening exam. Electronically signed by: Fidel fernandez/luiz:07/06/2024 10:46:01 Water Pump Assembler(s): RT Hi(R)(M), [facility] letter sent: Normal Exam Reading location: [place] Mammogram BI-RADS: Category 1: Negative Procedure Note Fidel Ngo MD - 07/06/2024 - [facility] SCREENING BILATERAL DIGITAL W CAD W CHECO BILATERAL DIGITAL SCREENING MAMMOGRAM 3D/2D WITH CAD WITH MEDIOLATERAL OBLIQUE CRANIOCAUDAL: 07/06/2024 The study was acquired using digital technology and interpreted from soft copy. Current study was also evaluated with ICAD version 7.2. 2D digital mammographic views, as well as 3D digital tomosynthesis were performed in the CC and MLO projections. CLINICAL: Routine screening. Patient has no complaints. No personal history of cancer. Maternal aunt had breast cancer. COMPARISONS: Comparison is made to exams dated: [facility], [facility], and [facility]. BREAST TISSUE:The breasts are heterogeneously dense, which may obscure small masses. FINDINGS: No significant masses, calcifications, or other findings are seen in either breast. There has been no significant interval change. IMPRESSION: NEGATIVE There is no mammographic evidence of malignancy. A 1 year screening mammogram is recommended. A letter will be sent to the patient with these results. The patient will be entered into a reminder system with a target due date of 1 year for her next screening exam. Electronically signed by: Fidel fernandez/luiz:07/06/2024 10:46:01 Water Pump Assembler(s): RT Hi(R)(M), [facility] letter sent: Normal Exam Reading location: [place] Mammogram BI-RADS: Category 1: Negative us Winston Raygoza MD IMG MAMMO ORDERABLES Final Result * [facility] BONE DENSITOMETRY AXIAL SKELETON (08/08/2021 12:00 AM WOOD MECHANIST) Anatomical Region Laterality Modality BODY N/A Other 08/08/2021 us Pia Quintero MD IMG DEXA ORDERABLES F inal Result from Last 3 Months or Most Recently Relevant to Health Maintenance Insurance MEDICARE [facility] [place] [address] Care Teams Technology Auditor Relationship Specialty Start Date End Date Winston Raygoza MD [address] [place] [address] PCP - General Internal Medicine 06/15/15
--- OUTSIDE RECORDS SUMMARY | 2024-10-08 08:22 | XMS_ITS | Encounter Summary ---
Author Organization [facility] Address [address] [place] [address] Phone Care Team Providers Care Bottle And Glass Inspector Name Role Phone Winston Raygoza MD Primary Care Provider [phone] Reason for Referral * Radiology Services (Routine) - Closed Specialty Diagnoses / Procedures Referred By Contac t Referred To Contact Radiology Diagnoses Encounter for screening mammogram for malignant neoplasm of breast Procedures [facility] SCREENING BILATERAL DIGITAL W CAD W CHECO Winston Raygoza MD [address] [place] [address] Phone: tel: fax: Referral ID Status Reason Start Date Expiration Date Visits Re quested Visits Authorized [id number] Closed 06/28/2024 1 1 INSTRUCTOR Encounter Details Date Type Department Care Team (Late st Contact Info) Description 06/28/2024 Transcribe Orders [facility] Mammography [address] [place] [address] Winston Raygoza MD [address] [place] [address] Encounter for screening mammogram for malignant neoplasm of breast (Primary Dx) Social History Tobacco Use Types Packs/Day Years Used Date Smoking Tobacco: Never Passive Smoke Exposure: Never Smokeless Tobacco: Never Alcohol Use Standard Drinks/Week Comments Never 0 (1 standard drink = 0.6 oz pur e alcohol) [facility] Utilities Answer Date Recorded In the past [...] week 08/05/2023 How often do you attend chur ch or catholic services? More than 4 times per year 08/05/2023 Do you belong to any clubs o r organizations such as jainism groups, unions, fraternal or athletic groups, or [...] Recorded Total Score - Questions 1-9 0 01/10 [facility] of Occupat ional Health - Occupational [...] place to sleep or slept in a alf (including now)? No 08/05/2023 Sexually Active Control Partners Comments Not Currently Comments No Sex and Gender Information Value Date Recorded Sex Assigned at Not on file Legal Sex Female 9:50 PM CDT Gender Identity Not on file Sexual Orientation Not on file documented as of this encounter Plan of Treatment Upcoming Encounters Date Type Department Care Team (Late st Contact Info) Description 10/27/2024 9:30 AM CDT [facility] [address] [place] [address] Winston Raygoza MD [address] [place] [address] Discharge Disposition: Discharged to home or Selfcare 02/05/2025 8:30 AM CDT Office Visit [facility] - [facility] - [place] [address] [place] [phone] Winston Raygoza MD [address] [place] [address] documented as of this encounter Results * [facility] SCREENING BILATERAL DIGITAL W CAD W CHECO (07/06/2024 7:50 AM GRE INSTRUCTOR) Anatomical Region Laterality Modality breast Bilateral Mammography 07/06/2024 7:53 AM GRE INSTRUCTOR Narrative 07/06/2024 10:55 AM GRE INSTRUCTOR - [facility] SCREENING BILATERAL DIGITAL W CAD W CHECO BILATERAL DIGITAL SCREENING MAMMOGRAM 3D/2D WITH CAD WITH MEDIOLATERAL OBLIQUE CRANIOCAUDAL: 07/06/2024 The study was acquired using digital technology and interpreted from soft copy. Current study was also evaluated with [employer] version 7.2. 2D digital mammographic views, as well as 3D digital tomosynthesis were performed in the CC and MLO projections. CLINICAL: Routine screening. Patient has no complaints. No personal history of cancer. Maternal aunt had breast cancer. COMPARISONS: Comparison is made to exams [facility]: [facility], [facility], and [facility]. BREAST TISSUE:The breasts are heterogeneously dense, which [...] exam. Electronically signed by: Fidel fernandez/luiz:07/06/2024 10:46:01 Transitional Kindergarten Teacher(s): RT Hi(R)(M), [facility] letter sent: Normal Exam Reading location: [place] [...] Comparison is made to exams dated: [facility]2021 [facility], 04/13/2023 [facility], and [facility]. BREAST TISSUE:The breasts are heterogeneously dense, which [...] exam. Electronically signed by: Fidel fernandez/luiz:07/06/2024 10:46:01 Transitional Kindergarten Teacher(s): RT Hi(R)(M), [facility] letter sent: Normal Exam Reading location: [place] Mammogram BI-RADS: Category 1: Negative Winston Raygoza MD IMG MAMMO ORDERABLES Final Result documented in this encounter Visit Diagnoses Diagnosis Encounter for screening mammogram for malignant neoplasm of breast- Primary Other screening mammogram Encounter for screening mammogram for malignant neoplasm of breast Other screening mammogram documented in this encounter Additional Health Concerns Assessment Noted Time PHQ-9 Depression Total Score: 0 02/03/20 24 8:04 AM CDT documented as of this encounter Care Teams Bottle And Glass Inspector Relationship Specialty Start Date End Date Winston Raygoza MD [address] [place] [address] PCP - General Internal Medicine 06/15/15 documented as of this encounter
--- OUTSIDE RECORDS SUMMARY | 2024-10-08 08:22 | XMS_ITS | Encounter Summary ---
Author Organization [facility] Address [address] [place] [address] Phone Care Team Providers Care Construction Specialist Name Role Phone Winston Raygoza MD Primary Care Provider Reason for Visit * Reason Comments Medication Refill Encounter Details Date Type Department Care Team (Late st Contact Info) Description 01/30/2021 Refill [facility] [place] [address] [place] [phone] Winston Raygoza MD [address] [place] [address] Medication Refill Social History Tobacco Use Types Packs/Day Years Used Date Smoking Tobacco: Never Smokeless Tobacco: Never Alcohol Use Standard Drinks/Week Comments Never 0 (1 standard drink = 0.6 oz pur e alcohol) AUDIT-C Answer Date Recorded Q1: How often do you have a drink containing alc ohol? Never 11/09/2019 Average Number of Drinks Not on file 020 Frequency of Binge Drinking Not on file 10/12 PHQ-2 Answer Date Recorded Total Score - Questions 1-9 0 12/10 Sexually Active Control Partners Comments Not Currently Comments No Sex and Gender Information Value Date Recorded Sex Assigned at Not on file Legal Sex Female 9:50 PM CDT Gender Identity Not on file Sexual Orientation Not on file documented as of this encounter Miscellaneous Notes * Telephone Encounter - Leatha Solares RN - 01/31/2021 8:07 AM CDT Please review and sign. documented in this encounter Plan of Treatment Upcoming Encounters Date Type Department Care Team (Late st Contact Info) Description 10/27/2024 9:30 AM CDT [facility] [address] [place] [address] Winston Raygoza MD [address] [place] [address] Discharge Disposition: Discharged to home or Selfcare 02/05/2025 8:30 AM CDT [facility] [place] [address] [place] [phone] Winston Raygoza MD [address] [place] [address] documented as of this encounter Visit Diagnoses Not on filedocumented in this encounter Additional Health Concerns Infection Onset Date Last Indicated Resolved Time COVID - 19 07/17/2021 07/17/2021 08/06/2021 12:1 6 AM APPLICATION CHEMIST Assessment Noted Time PHQ-9 Depression Total Score: 0 12/21/19 21 1:00 PM CDT documented as of this encounter Care Teams Construction Specialist Relationship Specialty Start Date End Date Winston Raygoza MD [address] [place] [address] PCP - General Internal Medicine 06/15/15 documented as of this encounter
--- OUTSIDE RECORDS SUMMARY | 2024-10-08 08:22 | XMS_ITS | Encounter Summary ---
Author Organization [facility] Address [address] [place] [place] [address] Phone Care Team Providers Care Cna Hha Name Role Phone Winston Raygoza MD Primary Care Provider Reason for Visit * Reason Comments Medication Refill Encounter Details Date Type Department Care Team (Late st Contact Info) Description 09/10/2023 Refill [facility] - Internal Medicine - [place] [address] [place] [phone] Winston Raygoza MD [address] [place] [address] Medication Refill Social History Tobacco Use Types Packs/Day Years Used Date Smoking Tobacco: Never Passive Smoke Exposure: Never Smokeless Tobacco: Never Alcohol Use Standard Drinks/Week Comments Never 0 (1 standard drink = 0.6 oz pur e alcohol) [facility] Utilities Answer Date Recorded In the past 12 months has [employer], gas, oil, or water [employer] threatened to shut off services in your [...] week 08/05/2023 How often do you attend [facility] or catholic services? More than 4 times per year 08/05/2023 Do you belong to any clubs o r organizations such as jain groups, unions, fraternal or athletic groups, or [...] Total Score - Questions 1-9 0 07/13 [facility] - Occupational [...] place to sleep or slept in a residential (including now)? No 08/05/2023 Sexually Active Control Partners Comments Not Currently Comments No Sex and Gender Information Value Date Recorded Sex Assigned at Not on file Legal Sex Female 9:50 PM CDT Gender Identity Not on file Sexual Orientation Not on file documented as of this encounter Miscellaneous Notes * Telephone Encounter - Esthela Jimenez RN - 09/10/2023 9:01 AM CST Medication(s) [facility] and [facility] Chronic Medication Refill Standing Order for Pediatricand Adult Patients. Requested Prescriptions Pending Prescriptions Disp Refills levothyroxine (SYNTHROID) 100 MCG Tablet [Pharmacy Med Name: LEVOTHYROXINE 100 MCG TABLET] 90 Tablet 0 Sig: TAKE 1 TABLET BY MOUTH EVERY DAY Thyroid Hormones Protocol Passed - 09/10/2023 12:01 AM Passed - Visit with relevant provider in past 12 months or upcoming 90 days Recent Visits Date Type Provider Dept 08/05/23 [facility] [place] 02/02/23 Office Visit Winston Raygoza MD [facility] Showing recent visits within past 365 days and meeting all other requirements Future Appointments No visits were found meeting these conditions. Showing future appointments within next 90 days and meeting all other requirements Passed - Normal TSH in past 12 months TSH Date Value Ref Range Status 01/09/2023 2.230 0.270 - 4.200 mIU/L Final Refused Prescriptions Disp Refills sertraline (ZOLOFT) 50 MG Tablet [Pharmacy Med Name: SERTRALINE HCL 50 MG TABLET] 90 Tablet 0 Sig: TAKE 1 TABLET BY MOUTH EVERY DAY SSRI (6 Month Refill Only) Protocol Failed - 09/10/2023 12:01 AM Failed - Active on medication list Failed - Has an encounter in the past 6 months with a depression, anxiety, adjustment disorder, OCD, or PTSD visit diagnosis Passed - Visit with relevant provider in past 6 months or upcoming 90 days Recent Visits Date Type Provider Dept 08/05/23 Office Visit [facility] [place] Showing recent visits within past 182 days and meeting all other requirements Future Appointments No visits were found meeting these conditions. Showing future appointments within next 90 days and meeting all other requirements Passed - Patient has established therapy with SSRI for at least 6 months T BRUSH MAKER documented in this encounter Plan of Treatment Upcoming Encounters Date Type Department Care Team (Late st Contact Info) Description 10/27/2024 9:30 AM CDT [facility] [address] [place] [address] Winston Raygoza MD [address] [place] [address] Discharge Disposition: Discharged to home or Selfcare 02/05/2025 8:30 AM CDT [facility] - [facility] - [place] [address] [place] [address] Winston Raygoza MD [address] [place] [address] documented as of this encounter Visit Diagnoses Not on filedocumented in this encounter Additional Health Concerns Assessment Noted Time PHQ-9 Depression Total Score: 0 08/05/19 8:03 AM PAINT BRUSH MAKER documented as of this encounter Care Teams Cna Hha Relationship Specialty Start Date End Date Winston Raygoza MD [address] [place] [address] PCP - General Internal Medicine 06/15/15 documented as of this encounter
--- OUTSIDE RECORDS SUMMARY | 2024-10-08 08:22 | XMS_ITS | Encounter Summary ---
Author Organization [facility] Address [address] [place] [address] Phone Care Team Providers Care Avionics Manager Name Role Phone Winston Raygoza MD Primary Care Provider [phone] Reason for Visit * Reason Comments Medication Refill Encounter Details Date Type Department Care Team (Late st Contact Info) Description 12/01/2023 Refill [facility] - Internal Medicine - [place] [address] [place] [phone] Winston Raygoza MD [address] [place] [address] Medication Refill Social History Tobacco Use Types Packs/Day Years Used Date Smoking Tobacco: Never Passive Smoke Exposure: Never Smokeless Tobacco: Never Alcohol Use Standard Drinks/Week Comments Never 0 (1 standard drink = 0.6 oz pur e alcohol) [facility] Utilities Answer Date Recorded In the past 12 months has [employer], gas, oil, or water [employer] threatened to shut off services in your [...] 08/05/2023 How often do you attend [facility] or jehovah's witness services? More than 4 times per year 08/05/2023 Do you belong to any clubs o r organizations such as episcopalian groups, unions, fraternal or athletic groups, or [...] Total Score - Questions 1-9 0 07/13 [facility] - Occupational [...] Telephone Encounter - Esthela Jimenez RN - 12/01/2023 9:12 AM CDT Medication(s) refilled and signed per [facility] Chronic Medication Refill Standing Order for Pediatricand Adult Patients. Requested Prescriptions Pending Prescriptions Disp Refills omeprazole (PriLOSEC) 20 MG CAPSULE DELAYED RELEASE [Pharmacy Med Name: OMEPRAZOLE DR 20 MG CAPSULE] 90 Capsule 0 Sig: TAKE 1 CAPSULE BY MOUTH EVERY DAY Proton Pump Inhibitors Protocol Passed - 12/01/2023 12:09 AM Passed - Visit with relevant provider in past 12 months or upcoming 90 days Recent Visits Date Type Provider Dept 08/05/23 Office Visit Winston Raygo[facility] MD [facility] 02/02/23 Office Visit Winston Raygoza MD [facility] [place] Showing recent visits within past 365 days and meeting all other requirements Future Appointments Date Type Provider Dept 02/03/24 Appointment Winston Raygoza MD [facility] Showing future appointments within next 90 days and meeting all other requirements documented in this encounter Plan of Treatment Upcoming Encounters Date Type Department Care Team (Late st Contact Info) Description 10/27/2024 9:30 AM CDT [facility] [place] [address] Winston Raygoza MD [address] [place] [address] Discharge Disposition: Discharged to home or Selfcare 02/05/2025 8:30 AM CDT [facility] - [place] [address] [place] [address] Winston Raygoza MD [address] [place] [address] documented as of this encounter Visit Diagnoses Not on filedocumented in this encounter Additional Health Concerns Assessment Noted Time PHQ-9 Depression Total Score: 0 08/05/19 24 8:03 AM NETBACKUP ENGINEER documented as of this encounter Care Teams Avionics Manager Relationship Specialty Start Date End Date Winston Raygoza MD [address] [place] [address] PCP - General Internal Medicine 06/15/15 documented as of this encounter
--- OUTSIDE RECORDS SUMMARY | 2024-10-08 08:23 | XMS_ITS | Encounter Summary ---
Author Organization [facility] Address [address] [place] [address] Phone Care Team Providers Care Wood Gluer Name Role Phone Winston Raygoza MD Primary Care Provider [phone] Reason for Visit * Reason Comments Medication Refill Encounter Details Date Type Department Care Team (Late st Contact Info) Description 01/15/2021 Refill [facility] - [place] [address] [place] [phone] Winston Raygoza MD [address] [place] [place] [address] Medication Refill Social History Tobacco [...] on file Sexual Orientation Not on file COVID-19 Exposure Response Date Recorded In the last month, have you been in contact with someone who was confirmed or suspected to have Coronavirus / COVID-19? No / Unsure 12/20/2020 1:15 PM CDT documented as of this encounter Plan of Treatment Upcoming Encounters Date Type Department Care Team (Late st Contact Info) Description 10/27/2024 9:30 AM CDT [facility] 1 [place] [address] Winston Raygoza MD [address] [place] [address] Discharge Disposition: Discharged to home or Selfcare 02/05/2025 8:30 AM CDT [facility] [place] [address] [place] [address] Winston Raygoza MD [address] [place] [address] documented as of this encounter Visit Diagnoses Not on filedocumented in this encounter Additional Health Concerns Infection Onset Date Last Indicated Resolved Time COVID - 19 07/17/2021 07/17/2021 08/06/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
--- OUTSIDE RECORDS SUMMARY | 2024-10-08 08:23 | XMS_ITS | Encounter Summary ---
Author Organization [facility] Address [address] [place] [address] Phone Care Team Providers Care Rn Advice Name Role Phone Winston Raygoza MD Primary Care Provider Reason for Visit * Reason Comments Medication Refill Encounter Details Date Type Department Care Team (Late st Contact Info) Description 10/30/2020 Refill [facility] - [place] [address] [place] [phone] Winston Raygoza MD [address] [place] [place] [address] Medication Refill Social History Tobacco [...] of Binge Drinking Not on file 10/12 Comments No Sex and Gender Information Value Date Recorded Sex Assigned at Not on file Legal Sex Female 9:50 PM CDT Gender Identity Not on file Sexual Orientation Not on file documented as of this encounter Miscellaneous Notes * Telephone Encounter - Leatha Solares RN - 10/31/2020 7:57 AM CDT Please review and sign. documented in this encounter Plan of Treatment Upcoming Encounters Date Type Department Care Team (Late st Contact Info) Description 10/27/2024 9:30 AM CDT [facility] [place] [address] Winston Raygoza MD [address] [place] [address] Discharge Disposition: Discharged to home or Selfcare 02/05/2025 8:30 AM CDT [facility] Visit [facility] Internal Medicine [place] [address] [place] [phone] Winston Raygoza MD [address] [place] [address] documented as of this encounter Visit Diagnoses Not on filedocumented in this encounter Additional Health Concerns Infection Onset Date Last Indicated Resolved Time COVID - 19 07/17/2021 07/17/2021 08/06/2021 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
--- OUTSIDE RECORDS SUMMARY | 2024-10-08 08:28 | XMS_ITS | Continuity of Care Document ---
Author Organization [employer] [facility] Address [address] [place] [address] Phone Care Team Providers Care Shoe Treer Name Role Phone Abram Roy MD Unavailable [...] Diagnoses Date Provider Providers Copied on Encounter [facility], [id number] [place] [address] [address], [place], [place], [id number], tel:[phone] SEC [place] Professional 2 week s/p YAG PC (chief complaint) Encounter for examination following surgery 0 Kirill Valverde. [address] [place], [place], [id number], [place]. tel:[phone] Referring Provider: Meghan Ball, [address] [place], [address]. tel:[phone] [facility], [address], [place], [id number], [place] tel:[phone] SEC Mcintosh [place] Professional YAG (chief complaint) Encounter for examination following surgeryOther secondary cataract, left eye 0 Kirill Valverde. [address] [facility] [place], [id number], [place]. tel:[phone] Referring Provider: Abram Grace, [address] [facility] [place], [address] . tel:[phone] [facility], [address], [place], [place], [id number], tel:[phone] SEC [place] Professional YAG PC (chief complaint) Presence of intraocular lensOther secondary cataract, right eyeOther secondary cataract, left eyeDrusen (degenerative ) of macula, right eye 0 Kirill Valverde. [address] [facility] [place], [place], [id number], [place]. tel:[phone] Referring Provider: Abram Grace, [address] [facility] A, [place], [address] . tel:[phone] [facility], [address], [place], [place], [id number], [place] tel:[phone] SEC Mcintosh DANII Professional 3 wk CE PO (chief complaint) Encounter for examination following surgery 8 Lizzy Christianson. [address] [place], [address], [place]. tel:[phone] Referring Provider: Meghan Ball, [address] [place] [address], [address]. tel:[phone] [facility], [address] [place] [address] [address], [place], [place], [id number], [place] [phone] SEC [place] Professional 1 WK PCIOL Post OP (chief complaint) No Information 8 Lizzy Christianson. [address] [place], [address], [place]. tel:[phone] Referring Provider: Meghan Ball, [address] [place], [address]. tel:[phone] [facility], [address], [place], [place], [id number], [place] [phone] SEC Mcintosh DANII Professional Post-Op (chief complaint) No Information 8 Lizzy Christianson. [address] [place], [address], [place]. tel:[phone] Referring Provider: Meghan Ball, [address] [place], [address]. tel:[phone] [facility], [address], [place], [place], [id number], [place] tel: [facility] No Information 8 Lizzy Christianson. [address] [place], [place], [facility], [place]. tel:[phone] Referring Provider: Meghan Ball, [address] [place] [address], [address]. tel:[phone] [facility], [address] [place] [address] [address], [place], [place], [id number], tel: [phone] [facility] No Information Lizzy Christianson. [address] [place], [place], [facility], [place]. tel:[phone] Referring Provider: Meghan Ball, [address] [place] [address], [facility]. tel:[phone] [facility], [address] [place] [address] [address], [place], [place], [id number], [place] tel:[phone] SEC Wilder [place] Professional f/u exam, postop (chief complaint) No Information 7 Juan OD Disha. [address] [facility] [place], [address], [place]. tel:[phone] Referring Provider: Meghan Ball, [address] [place] [address], [facility]. tel:[phone] [facility], [address], [place], [place], [id number], tel:[phone] SEC Wilder [place] Professional Post-Op (chief complaint) No Information 7 Juan SHERYL Gauthier. [address] [place] [address] [place], [address], [place]. tel:[phone] Referring Provider: Meghan Ball, [address] [place] [address], [address]. tel:[phone] [facility], [address], [place], [place], [id number], [place] tel:[phone] SEC Wilder [place] Professional post op (chief complaint) No Information Dec-0 6 7 Juan Gauthier. [address] [facility], [place], [address], [place]. tel:[phone] Referring Provider: Meghan Ball, [address] [place], [address]. tel:[phone] [facility], [address], [place], [place], [id number], [place] tel:[phone] [facility] No Information Jun-0 7 Lizzy Christianson. [address] [place], [address], [place]. tel:[phone] Referring Provider: Meghan Ball, [address] [place], [address]. tel:[phone] [facility], [address], [place], [place], [id number], [place] tel:[phone] SEC [facility] No Information Dec-0 7 Lizzy Christianson. [address] [place], [address], [place]. tel:[phone] Referring Provider: Meghan Ball, [address] [place], [address]. tel:[phone] [facility], [address], [place], [place], [id number], [place] tel:[phone] SEC Wilder [place] Professional Testing only (chief complaint) No Information 7 Lizzy Christianson. [address] [place], [address], [place]. tel:[phone] Referring Provider: Meghan Ball, [address] [place], [address]. tel:[phone] [facility], [address] [facility] [address], [place], [place], [id number], tel:[phone] SEC Wilder DANII Professional Cataract evaluation (chief complaint) No Information 3 0-201 7 Lizzy Christianson. [address] [place], [address], [place]. tel:[phone] Referring Provider: Meghan Ball, [address] [place], [address]. tel:[phone] [facility], [address] [facility] [address], [place], [place], [id number], tel:[phone] SEC Wilder DANII Professional No Information 3 0- 7 Lizzy Christianson. [address] [place], [address], [place]. tel:[phone] [facility], [address], [place], [place], [id number], tel:[phone] SEC Wilder FOY Professional No Information Jan-0 6-201 0 Deyanira Amaya. [address] [facility] [place], [place], [id number], . tel:[phone] Family History Family Member Type Diagnosis Age At Onset No Information Payers Payer name Insurance type Covered alliance party ID Authoriza tion(s) No Information Social History [...] Instruction Additional Infor annalise Impression/Plan Impression/Plan Impression/Plan Follow up - Return i n 6 months with Meghan Ball M.D. for Complete Exam. Impression/Plan - PO W 3 s/p CE/PCIOL OS. Doing well. Continue post op drops as instructed. Recommend artificial tears QID OU. Return to [facility] in 2 weeks for refraction and [...] cond oth than malig neoplm Impression/Plan - Ca taracts surgery measurements reviewed [...] Dry eye syndrome of bilateral lacrimal glands Follow up - Return i n 2 weeks for repeat measurements IOL master, Pentacam and OCT MAC Related to Combined forms of age-related cataract, right eye Impression/Plan - Co ndition appears to be mild. Treatment not needed at this time. Will monitor. Related to RPE mottling of macula Impression/Plan - Ca taract presence and progression [...] Combined forms of age-related cataract, right eye Assessments Type Assessment Date assessment Encounter for examination follow ing surgery Patient Care Teams Name Effective Dates (start - stop) Status Members No Information
[2024-10-08 08:30] VITALS: BP 134/69; PULSE 81; RESP 14; TEMP 36.2; O2SAT 96
--- NOTE | 2024-10-08 08:33 | ED_ITS ---
HPI - URI/Sore Throat General Chief Complaint: Upper Respiratory Infection Stated Complaint: Eye Pain/Headache Time Seen by Provider: 10/08/24 08:33 Source: patient Mode of arrival: ambulatory Limitations: no limitations History of Present Illness HPI Narrative: 74 yo F presents with c/o nasal congestion, sinus pressure, headaches for 2 wks. past 4 days reports bilateral ear pain, pressure behind eyes. Takes daily allergy medication. Afebrile. had leftover amoxicillin and took 2 doses. NO CP or SOB. All systems reviewed and negative except as noted. Related Data Home Medications ?Medication ?Instructions ?Recorded ?Confirmed ?Last Taken ?Type alendronate 70 mg tablet mg PO 10/08/24 Unknown History atorvastatin 40 mg tablet mg 10/08/24 Unknown History celecoxib 200 mg capsule mg 10/08/24 Unknown History levothyroxine 100 mcg tablet mcg 10/08/24 Unknown History omeprazole 20 mg capsule,delayed mg 10/08/24 Unknown History release Allergies Allergy/AdvReac Type Severity Reaction Status Date / Time No Known Allergies Allergy Verified 10/08/24 08:24 Review of Systems Review of Systems: CONSTITUTIONAL: Denies fever, chills, or sweats. EYES: Denies visual changes, redness, or discharge. ENT: Reports rhinorrhea, congestion, sinus pressure. Denies sore throat. reports Bilateral otalgia. CARDIOVASCULAR: Denies chest pain, palpitations, or edema. RESPIRATORY: Denies cough or dyspnea. GASTROINTESTINAL: Denies abdominal pain, nausea, vomiting, or diarrhea. GENITOURINARY: Denies dysuria or hematuria. SKIN: Denies rash or itching. MUSCULOSKELETAL: Denies back pain, joint pain, or myalgia. NEUROLOGIC: Denies headache, numbness, or weakness. PSYCHIATRIC: Denies anxiety or depression. All other systems reviewed are negative, except as documented in HPI. PMFSH Comments At time of signature, agree with nursing past medical, surgical, social and family history. There is no relevant family history pertinent to the presenting complaint. Exam Narrative: GENERAL: This is a well-nourished, well-developed patient, in no apparent distress. HEAD: normocephalic, atraumatic. EYES: PERRL. Sclera clear/white. Vision is grossly intact. EARS: External ears normal, auditory canals clear and without drainage, TMs normal without perforation. Hearing grossly intact. NOSE: External nose normal with clear nasal duration, erythema swelling to bilateral nares. Bilateral frontal sinus pressure THROAT: Mucous membranes moist, postnasal drainage with erythema. No swelling or exudates NECK: Neck supple, non-tender without lymphadenopathy, masses or thyromegaly. CARDIOVASCULAR: Regular rate and rhythm without murmurs, gallops, or rubs. RESPIRATORY: Clear to auscultation. Breath sounds equal bilaterally. No wheezes, rales, or rhonchi. SKIN: warm, Dry, intact with no suspicious lesions or rash, good texture and t urgor. NEURO: awake, alert, and oriented to person, place and time. There were no obvious focal neurologic abnormalities. EXTREMITIES: No joint tenderness, effusion, or edema noted. Course Course Level of Care: Express Care Visit Vital Signs Vital signs: Vital Signs Temperature 36.2 C L 10/08/24 08:30 Pulse Rate 81 10/08/24 08:30 Respiratory Rate 14 10/08/24 08:30 Blood Pressure 134/69 10/08/24 08:30 Pulse Oximetry 96 10/08/24 08:30 Oxygen Delivery Room Air 10/08/24 08:30 Temperature 36.2 C L 10/08/24 08:30 Pulse Rate 81 10/08/24 08:30 Respiratory Rate 14 10/08/24 08:30 Blood Pressure 134/69 10/08/24 08:30 Pulse Oximetry 96 10/08/24 08:30 Oxygen Delivery Room Air 10/08/24 08:30 reviewed MDM - URI/Sore Throat MDM Narrative Medical decision making narrative: will treat patient for bacterial sinusitis due to duration of symptoms and exam findings. Patient is well-appearing, nontoxic. Please be advised this is a medical document. It is intended for bzqj-ie-eqyw communication. It is written in medical language and may contain unfamiliar abbreviations or verbiage. Medical documents are intended to carry relevant information, facts as evident, and the clinical opinion of the practitioner at the time of the encounter. This report may have been done utilizing a voice recognition system. Attempts have been made to correct errors. However, there may be uncorrected grammatical, spelling, and recognition errors present. The file time of this note does not necessarily represent the time of service. Differential Diagnosis Differential diagnosis: Likely upper respiratory infection, sinusitis and viral infection Discharge Plan Discharge Clinical Impression: Acute bacterial sinusitis Patient Disposition: Home, Self-Care Condition: Stable Instructions: Antibiotic Form, Sinusitis (ED) Additional Instructions: Take medications as prescribed. Continue daily antihistamine such as Claritin or Zyrtec. Take Tylenol every 6-8 hours as needed for pain and fever. Drink at least 64 oz of water a day. Place cool mist humidifier in bedroom where you sleep. See your doctor if symptoms are not improving. Patient Language: Bahamian Prescriptions: New methylprednisolone [Medrol (Dennis)] 4 mg tablets,dose pack See Rx Instructions PO .COMPLEX Qty: 21 0RF Rx Instructions: orally per package directions fluticasone propionate [Flonase Allergy Relief] 50 mcg/actuation spray,suspension 1 spray intranasal BID Qty: 16 0RF Rx Instructions: administer into each nostril amoxicillin-pot clavulanate 875-125 mg tablet 1 tablet PO Q12H 7 Days Qty: 14 0RF No Action celecoxib 200 mg capsule atorvastatin 40 mg tablet alendronate 70 mg tablet PO levothyroxine 100 mcg tablet omeprazole 20 mg capsule,delayed release(DR/EC) Follow-up/Referrals: Jaret,Winston Wilson MD [Primary Care Provider] - Time of Disposition: 08:41
== END 2024-10-08 08:45 | disposition home or self-care (01) ==
PROVIDERS: Emergency Provider Nurse Practitioner Family; PCP Internal Medicine
DX: J01.90 Acute sinusitis, unspecified (principal); E78.00 Pure hypercholesterolemia, unspecified; E03.9 Hypothyroidism, unspecified; M19.90 Unspecified osteoarthritis, unspecified site
CPT/HCPCS: 99203; G0463

== ENCOUNTER 2025-07-11 08:03 | Emergency (ER) | payer MEDICARE, SELFPAY ==
--- OUTSIDE RECORDS SUMMARY | 2025-07-11 08:06 | XMS_ITS | Encounter Summary ---
Author Organization [facility] Address [address] [place] [address] Phone Care Team Providers Care Brim Stitcher Name Role Phone Winston Raygoza MD Primary Care Provider [phone] Reason for Referral * Radiology Services (Routine) - Closed Specialty Diagnoses / Procedures Referred By Contac t Referred To Contact Radiology Diagnoses Encounter for screening mammogram for malignant neoplasm of breast Procedures JOSÉ MANUEL SCREENING BILATERAL DIGITAL W CAD W CHECO Winston Raygoza MD Phone: tel: fax: Referral ID Status Reason Start Date Expiration Date Visits Re quested Visits Authorized [id number] Closed 06/28/2024 1 1 O TEACHER Encounter Details Date Type Department Care Team (Late st Contact Info) Description 06/28/2024 Transcribe Orders [facility] Mammography [address] [place] [address] Winston Raygoza MD [address] [place] [address] Encounter for screening mammogram for malignant neoplasm of breast (Primary Dx) Social History Tobacco Use Types Packs/Day Years Used Date Smoking Tobacco: Never Passive Smoke Exposure: Never Smokeless Tobacco: Never Alcohol Use Standard Drinks/Week Comments Never 0 (1 standard drink = 0.6 oz pur e alcohol) [facility] Utilities Answer Date Recorded In the past 12 months has e electric, gas, oil, or water company threatened to shut off services in your home? No 08/05/2023 Social Connection and Isolation Panel Answer Date Recorded In a typical week, how many times do you talk on the phone with family, friends, or neighbors? More than three times a week 08/05/2023 How often do you get togethe r with friends or relatives? More than three times a week 08/05/2023 How often do you attend chur ch or shinto services? More than 4 times per year 08/05/2023 Do you belong to any clubs o r organizations such as sikhism groups, unions, fraternal or athletic groups, or [...] Total Score - Questions 1-9 0 01/10 [facility] [place] of Occupat ional Health - Occupational Stress [...] Care Team (Late st Contact Info) Description 08/08/2025 8:40 AM PIANO TEACHER Office Visit [facility] - Primary Care - [place] [address] [place] [id number] Winston Raygoza MD [address] [place] [address] documented as of this encounter Results * JOSÉ MANUEL SCREENING BILATERAL DIGITAL W CAD W CHECO (07/06/2024 7:50 AM PIANO TEACHER) Anatomical Region Laterality Modality breast Bilateral Mammography 07/06/2024 7:53 AM PIANO TEACHER Narrative 07/06/2024 10:55 AM PIANO TEACHER - JOSÉ MANUEL SCREENING BILATERAL DIGITAL W [...] Comparison is made to exams dated: 06/27/2021 [facility], 04/13/2023 [facility], and 06/30/2019 [facility]. BREAST TISSUE:The breasts are heterogeneously dense, which [...] exam. Electronically signed by: Fidel fernandez/luiz:07/06/2024 10:46:01 Daytime Caregiver(s): RT Hi(R)(M), [facility] letter sent: Normal Exam Reading location: [...] Comparison is made to exams dated: 06/27/2021 [facility], 04/13/2023 [facility], and 06/30/2019 [facility]. BREAST TISSUE:The breasts are heterogeneously dense, which [...] exam. Electronically signed by: Fidel fernandez/luiz:07/06/2024 10:46:01 Daytime Caregiver(s): RT Hi(R)(M), [facility] letter sent: Normal Exam Reading location: [place] Mammogram BI-RADS: Category 1: Negative Winston Raygoza MD IMG MAMMO ORDERABLES Final Result documented in this encounter Visit Diagnoses Diagnosis Encounter for screening mammogram for malignant neoplasm of breast- Primary Other screening mammogram Encounter for screening mammogram for malignant neoplasm of breast Other screening mammogram documented in this encounter Additional Health Concerns Infection Onset Date Last Indicated Resolved Time Respiratory Rule-Out 07/09/2025 07/09/2025 025 8:42 AM PIANO TEACHER Assessment Noted Time PHQ-9 Depression Total Score: 0 02/03/20 24 8:04 AM CDT documented as of this encounter Care Teams Brim Stitcher Relationship Specialty Start Date End Date Winston Raygoza MD PCP - General Internal Medicine 06/15/15 documented as of this encounter
--- OUTSIDE RECORDS SUMMARY | 2025-07-11 08:06 | XMS_ITS | Encounter Summary ---
Author Organization [facility] Address [address] [place] [address] Phone Care Team Providers Care General Superintendent Name Role Phone Winston Raygoza MD Primary Care Provider Reason for Visit * Reason Comments Medication Refill Encounter Details Date Type Department Care Team (Late st Contact Info) Description 12/01/2023 [facility]ill [facility] - [place] [address] [place] [address] Winston Raygoza MD [address] [place] [address] Medication Refill Social History Tobacco Use Types Packs/Day Years Used Date Smoking Tobacco: Never Passive Smoke Exposure: Never Smokeless Tobacco: Never Alcohol Use Standard Drinks/Week Comments Never 0 (1 standard drink = 0.6 oz pur e alcohol) [facility] Utilities Answer Date Recorded In the past 12 months has [employer], gas, oil, or water [employer] threatened to shut off services in your [...] week 08/05/2023 How often do you attend [facility] or temple services? More than 4 times per year 08/05/2023 Do you belong to any clubs o r organizations such as moravian groups, unions, fraternal or athletic groups, or [...] Total Score - Questions 1-9 0 07/13 [facility] of Occupat ional Health - [...] place to sleep or slept in a retirement (including now)? No 08/05/2023 Sexually Active Control [...] Medication(s) [facility] and [facility] Medication Refill Standing Order for Pediatricand [...] [place] 02/02/23 [facility] [place] [facility] recent visits within past 365 days and meeting all other requirements Future Appointments Date Type Provider Dept 02/03/24 Appointment Winston Raygoza MD [facility] [place] Showing future appointments within next 90 days and meeting all other requirements documented in this encounter Plan of Treatment Upcoming Encounters Date Type Department Care Team (Late st Contact Info) Description 08/08/2025 8:40 AM TRIM TECHNICIAN Office Visit [facility] - Primary Care - [place] [address] [place] [address] Winston Raygoza MD [address] [place] [address] documented as of this encounter Visit Diagnoses Not on filedocumented in this encounter Additional Health Concerns Infection Onset Date Last Indicated Resolved Time Respiratory Rule-Out 07/09/2025 07/09/2025 025 8:42 AM TRIM TECHNICIAN Assessment Noted Time PHQ-9 Depression Total Score: 0 08/05/19 24 8:03 AM TRIM TECHNICIAN documented as of this encounter Care Teams General Superintendent Relationship Specialty Start Date End Date Winston Raygoza MD PCP - General Internal Medicine 06/15/15 documented as of this encounter
--- OUTSIDE RECORDS SUMMARY | 2025-07-11 08:06 | XMS_ITS | Encounter Summary ---
Author Organization [facility] Address [address] [place] [address] Phone Care Team Providers Care Embroidery Patternmaker Name Role Phone Winston Raygoza MD Primary Care Provider Reason for Visit * Reason Comments Medication Refill Encounter Details Date Type Department Care Team (Late st Contact Info) Description 01/30/2021 Refill [facility] - Internal [facility] - [place] [address] [place] [phone] Winston Raygoza MD [address] [place] [address] Medication Refill Social History Tobacco Use Types [...] st Contact Info) Description 08/08/2025 8:40 AM STABLE ATTENDANT Office Visit [facility] - Primary Care - [place] [address] [place] [address] Winston Raygoza MD [address] [place] [address] documented as of this encounter Visit Diagnoses Not on filedocumented in this encounter Additional Health Concerns Infection Onset Date Last Indicated Resolved Time COVID - 19 07/17/2021 07/17/2021 08/06/2021 12:1 6 AM STABLE ATTENDANT Respiratory Rule-Out 07/09/2025 07/09/2025 025 8:42 AM STABLE ATTENDANT Assessment Noted Time PHQ-9 Depression Total Score: 0 12/21/19 21 1:00 PM CDT documented as of this encounter Care Teams Embroidery Patternmaker Relationship Specialty Start Date End Date Winston Raygoza MD PCP - General Internal Medicine 06/15/15 documented as of this encounter
--- OUTSIDE RECORDS SUMMARY | 2025-07-11 08:06 | XMS_ITS | Encounter Summary ---
Author Organization [facility] Address [address] [place] [address] Phone Care Team Providers Care Perforator Operator Oil Well Name Role Phone Winston Raygoza MD Primary Care Provider [phone] Reason for Visit * Reason Comments Medication Refill Encounter Details Date Type Department Care Team (Late st Contact Info) Description 10/30/2020 Refill [facility] - [place] [address] [place] [phone] Winston Raygoza MD [address] [place] [address] Medication Refill Social History Tobacco Use Types [...] st Contact Info) Description 08/08/2025 8:40 AM PROP AND EFFECTS DESIGNER Office Visit [facility] - Primary Care - [place] [address] [place] [address] Winston Raygoza MD [address] [place] [address] documented as of this encounter Visit Diagnoses Not on filedocumented in this encounter Additional Health Concerns Infection Onset Date Last Indicated Resolved Time COVID - 19 07/17/2021 07/17/2021 08/06/2021 12:1 6 AM PROP AND EFFECTS DESIGNER Respiratory Rule-Out 07/09/2025 07/09/2025 025 8:42 AM PROP AND EFFECTS DESIGNER documented as of this encounter Care Teams Perforator Operator Oil Well Relationship Specialty Start Date End Date Winston Raygoza MD PCP - General Internal Medicine 06/15/15 documented as of this encounter
--- OUTSIDE RECORDS SUMMARY | 2025-07-11 08:06 | XMS_ITS | Clinical Summary ---
Author Organization [facility] [address] Address [address] [place] [address] Phone Care Team Providers Care Rn Gyn Name Role Phone Winston Raygoza MD Primary Care Provider [phone] Medications levothyroxine sodium (TIROSINT) 112 mcg capsule [...] on file Legal Sex Female 6:06 AM DIRECTOR GLOBAL DEVELOPMENT Gender Identity Not on file Sexual Orientation [...] Comments Blood Pressure 132/70 06/27/2021 1:58 PM DIRECTOR GLOBAL DEVELOPMENT Pulse 73 04/03/2018 8:29 AM CDT Temperature 36.9 C (98.4 F) 04/03/2018 8:29 AM CDT Respiratory Rate 16 04/03/2018 8:29 AM CDT Oxygen Saturation 100% 04/03/2018 8:29 AM CDT Inhaled Oxygen Concentration - - Weight 80.7 kg (178 lb) 06/27/2021 1:58 PM DIRECTOR GLOBAL DEVELOPMENT Height 165.1 cm (5' 5) 06/27/2021 1:58 PM DIRECTOR GLOBAL DEVELOPMENT Body Mass Index 29.62 06/27/2021 1:58 PM DIRECTOR GLOBAL DEVELOPMENT Plan of Treatment Not on file Insurance [facility] MEDICARE MEDICARE Member Subscriber Plan / Payer ( fective 2015-Present) Name:Dee Bournejacques Amanda Member ID:[id number] Relation to Subscriber:Self Name:Dee Bournejacques Amanda Subscriber ID:[id number] Payer ID:[id number] Group ID:Not on file Type:MEDICARE TRADITIONAL Address: [place] [phone] [facility] Care Teams Rn Gyn Relationship Specialty Start Date End Date Winston Raygoza MD PCP - General 05/02/13
--- OUTSIDE RECORDS SUMMARY | 2025-07-11 08:06 | XMS_ITS | Encounter Summary ---
Author Organization [facility] Address [address] [place] [address] Phone Care Team Providers Care Fitness Director Name Role Phone Winston Raygoza MD Primary Care Provider Reason for Visit * Reason Comments Medication Refill Encounter Details Date Type Department Care Team (Late st Contact Info) Description 12/22/2023 [facility]ill [facility] - [place] [address] [place] [address] Winston Raygoza MD [address] [place] [address] Medication Refill Social History Tobacco Use Types Packs/Day Years Used Date Smoking Tobacco: Never Passive Smoke Exposure: Never Smokeless Tobacco: Never Alcohol Use Standard Drinks/Week Comments Never 0 (1 standard drink = 0.6 oz pur e alcohol) [facility] Utilities Answer Date Recorded In the past 12 months has [employer], gas, oil, or water [employer] threatened to shut off services in your [...] often do you attend [facility] or jehovah's witness services? More than 4 [...] Total Score - Questions 1-9 0 07/13 [facility] of Occupat ional Health - Occupational Stress [...] place to sleep or slept in a custodial (including now)? No 08/05/2023 Sexually Active Control [...] PM CDT Medication(s) [facility]illed and [facility] Medication Refill Standing Order for [...] MD [facility] [place] 02/02/23 Office Visit [place] Raygoza MD [facility] [place] Showing recent visits within past 365 days [...] st Contact Info) Description 08/08/2025 8:40 AM SALMON TROLL FISHER Office Visit [facility] - Primary Care - [place] [address] [place] [address] Winston Raygoza MD [address] [place] [address] documented as of this encounter Visit Diagnoses Not on filedocumented in this encounter Additional Health Concerns Infection Onset Date Last Indicated Resolved Time Respiratory Rule-Out 07/09/2025 07/09/2025 025 8:42 AM SALMON TROLL FISHER Assessment Noted Time PHQ-9 Depression Total Score: 0 08/05/19 24 8:03 AM SALMON TROLL FISHER documented as of this encounter Care Teams Fitness Director Relationship Specialty Start Date End Date Winston Raygoza MD PCP - General Internal Medicine 06/15/15 documented as of this encounter
--- OUTSIDE RECORDS SUMMARY | 2025-07-11 08:06 | XMS_ITS | Encounter Summary ---
Author Organization [facility] Address [address] [place] [address] Phone Care Team Providers Care Business Development Representative Name Role Phone Winston Raygoza MD Primary Care Provider Reason for Visit * Reason Comments Medication Refill Encounter Details Date Type Department Care Team (Late st Contact Info) Description 09/20/2023 Refill [facility] - [facility] - [place] [address] [place] [address] Winston Raygoza MD [address] [place] [address] Medication Refill Social History Tobacco Use Types Packs/Day Years Used Date Smoking Tobacco: Never Passive Smoke Exposure: Never Smokeless Tobacco: Never Alcohol Use Standard Drinks/Week Comments Never 0 (1 standard drink = 0.6 oz pur e alcohol) [facility] Utilities Answer Date Recorded In the past 12 months has [employer], gas, oil, or water [employer] threatened to shut off services in your [...] week 08/05/2023 How often do you attend [facility] or advent services? More than 4 times per year 08/05/2023 Do you belong to any clubs o r organizations such as jewish groups, unions, fraternal or athletic groups, or [...] Total Score - Questions 1-9 0 07/13 [facility] of Occupat ional Health - Occupational Stress [...] [place] 02/02/23 Office Visit [facility] Showing recent visits within past 365 days [...] st Contact Info) Description 08/08/2025 8:40 AM SULFUR CHLORIDE OPERATOR Office Visit [facility] - Primary Care - [place] [address] [place] [address] Winston Raygoza MD [address] [place] [address] documented as of this encounter Visit Diagnoses Not on filedocumented in this encounter Additional Health Concerns Infection Onset Date Last Indicated Resolved Time Respiratory Rule-Out 07/09/2025 07/09/2025 025 8:42 AM SULFUR CHLORIDE OPERATOR Assessment Noted Time PHQ-9 Depression Total Score: 0 08/05/19 24 8:03 AM SULFUR CHLORIDE OPERATOR documented as of this encounter Care Teams Business Development Representative Relationship Specialty Start Date End Date Winston Raygoza MD PCP - General Internal Medicine 06/15/15 documented as of this encounter
--- OUTSIDE RECORDS SUMMARY | 2025-07-11 08:06 | XMS_ITS | Encounter Summary ---
Author Organization [facility] Address [address] [place] [address] Phone Care Team Providers Care Relay Tester Helper Name Role Phone Winston Raygoza MD Primary Care Provider Reason for Visit * Reason Comments Medication Refill Encounter Details Date Type Department Care Team (Late st Contact Info) Description 12/12/2023 Refill [facility] - [place] [address] [place] [address] Winston Raygoza MD [address] [place] [address] Medication Refill Social History Tobacco Use Types Packs/Day Years Used Date Smoking Tobacco: Never Passive Smoke Exposure: Never Smokeless Tobacco: Never Alcohol Use Standard Drinks/Week Comments Never 0 (1 standard drink = 0.6 oz pur e alcohol) [facility] Utilities Answer Date Recorded In the past 12 months has [employer], gas, oil, or water [employer] threatened to shut off services in your [...] week 08/05/2023 How often do you attend [facility] or tenriism services? More than 4 times per year 08/05/2023 Do you belong to any clubs o r organizations such as methodist groups, unions, fraternal or athletic groups, or [...] Total Score - Questions 1-9 0 07/13 [facility] of Occupat ional Health - Occupational [...] place to sleep or slept in a fci (including now)? No 08/05/2023 Sexually Active Control [...] [place] 02/02/23 Office Visit Winston Raygoza MD [facility] [place] Showing recent visits within past 365 [...] st Contact Info) Description 08/08/2025 8:40 AM JR. JAVA DEVELOPER Office Visit [facility] - Primary Care - [place] [address] [place] [address] Winston Raygoza MD [address] [place] [address] documented as of this encounter Visit Diagnoses Not on filedocumented in this encounter Additional Health Concerns Infection Onset Date Last Indicated Resolved Time Respiratory Rule-Out 07/09/2025 07/09/2025 025 8:42 AM JR. JAVA DEVELOPER Assessment Noted Time PHQ-9 Depression Total Score: 0 08/05/19 24 8:03 AM JR. JAVA DEVELOPER documented as of this encounter Care Teams Relay Tester Helper Relationship Specialty Start Date End Date Winston Raygoza MD PCP - General Internal Medicine 06/15/15 documented as of this encounter
--- OUTSIDE RECORDS SUMMARY | 2025-07-11 08:06 | XMS_ITS | Encounter Summary ---
Author Organization [facility] Address [address] [place] [address] Phone Care Team Providers Care Earth Burner Name Role Phone Winston Raygoza MD Primary Care Provider [phone] Reason for Visit * Reason Comments Medication Refill Encounter Details Date Type Department Care Team (Late st Contact Info) Description 01/15/2021 Refill [facility] - Internal Medicine - [place] [address] [place] [id number] Winston Raygoza MD [address] [place] [address] Medication Refill Social History Tobacco Use Types [...] st Contact Info) Description 08/08/2025 8:40 AM ENTERPRISE SYSTEMS ENGINEER Office Visit [facility] - Primary Care - [place] [address] [place] [address] Winston Raygoza MD [address] [place] [address] documented as of this encounter Visit Diagnoses Not on filedocumented in this encounter Additional Health Concerns Infection Onset Date Last Indicated Resolved Time COVID - 19 07/17/2021 07/17/2021 08/06/2021 12:1 6 AM ENTERPRISE SYSTEMS ENGINEER Respiratory Rule-Out 07/09/2025 07/09/2025 025 8:42 AM ENTERPRISE SYSTEMS ENGINEER Assessment Noted Time PHQ-9 Depression Total Score: 0 12/21/19 21 1:00 PM CDT documented as of this encounter Care Teams Earth Burner Relationship Specialty Start Date End Date Winston Raygoza MD PCP - General Internal Medicine 06/15/15 documented as of this encounter
--- OUTSIDE RECORDS SUMMARY | 2025-07-11 08:06 | XMS_ITS | Encounter Summary ---
Author Organization [facility] Address [address] [place] [address] Phone Care Team Providers Care Hand I Blocker Name Role Phone Winston Raygoza MD Primary Care Provider [phone] Encounter Details Date Type Department Care Team (Late st Contact Info) Description 07/09/2025 Results Follow-Up [facility] - Primary Care - [place] [address] [place] [address] Nya Yoder, [facility] [address] [place] [address] JOSÉ MANUEL SCREENING BILATERAL DIGITAL W CAD W CHECO Social History Tobacco Use Types Packs/Day Years Used Date Smoking Tobacco: Never Passive Smoke Exposure: Never Smokeless Tobacco: Never Alcohol Use Standard Drinks/Week Comments Never 0 (1 standard drink = 0.6 oz pur e alcohol) [facility] Utilities Answer Date Recorded In the past 12 months has [employer] electric, gas, oil, or water company threatened to shut off services in your home? No 08/07/2024 Social Connection and Isolation Panel Answer Date Recorded In a typical week, how many times do you talk on the phone with family, friends, or neighbors? More than three times a week 08/07/2024 How often do you get togethe r with friends or relatives? Once a week 08/07/2024 Attends Shinto Services Not on file 08/07 Active Member [...] Total Score - Questions 1-[address] 01/[address] [facility] - [...] money to buy more. Never true 08/07/19 25 Within the past 12 months, t he [...] place to sleep or slept in a nursing home (including now)? No 08/05/2023 Housing Stability Vital [...] time in the past 12 m [facility], were you homeless or living in a nursing home (including now)? No 08/07/2024 Sexually Active Control Partners Comments Not Currently Comments No Sex and Gender Information Value Date Recorded Sex Assigned at Not on file Legal Sex Female 9:50 PM CDT Gender Identity Not on file Sexual Orientation Not on file documented as of this encounter Miscellaneous Notes * Telephone Encounter - Any Borrero CMA - 07/10/2025 1:29 PM MATERIAL HAULER Spoke to patient and gave mammogram results. RIAL HAULER documented in this encounter Plan of Treatment Upcoming Encounters Date Type Department Care Team (Late st Contact Info) Description 08/08/2025 8:40 AM MATERIAL HAULER Office Visit [facility] - [place] Care - [place] [address] [place] [phone] Winston Raygoza MD [address] [place] [address] documented as of this encounter Visit Diagnoses Not on filedocumented in this encounter Additional Health Concerns Infection Onset Date Last Indicated Resolved Time Respiratory Rule-Out 07/09/2025 07/09/2025 025 8:42 AM MATERIAL HAULER Assessment Noted Time PHQ-9 Depression Total Score: 0 02/06/20 25 8:26 AM CDT documented as of this encounter Care Teams Hand I Blocker Relationship Specialty Start Date End Date Winston Raygoza MD PCP - General Internal Medicine 06/15/15 documented as of this encounter
--- OUTSIDE RECORDS SUMMARY | 2025-07-11 08:06 | XMS_ITS ---
Author Organization [facility] Address [address] [place] [address] Phone Care Team Providers Care Manager Of Compensation Name Role Phone Winston Raygoza MD Primary Care Provider [phone] OnCall Chronic Care Management Status:Identified (Enrolling) Start date:02/19/2025 Enrollment reason:Identified using claims or encounter data Related social drivers of health:Intimate Partner Violence, Social Connections, Alcohol Use, Tobacco Use, Financial Resource Strain,Depression, Stress, Physical Activity, Food Insecurity, Transportation Needs, Housing Stability, Utilities Continued Care and Services Coordination
--- OUTSIDE RECORDS SUMMARY | 2025-07-11 08:06 | XMS_ITS | Encounter Summary ---
Author Organization [facility] Address [address] [place] [address] Phone Care Team Providers Care Custom Frame Assembler Name Role Phone Winston Raygoza MD Primary Care Provider Reason for Visit * Reason Comments Medication Refill Encounter Details Date Type Department Care Team (Late st Contact Info) Description 09/10/2023 Refill [facility] - Internal Medicine - [place] [address] [place] [address] Winston Raygoza MD [address] [place] [address] Medication Refill Social History Tobacco Use Types Packs/Day Years Used Date Smoking Tobacco: Never Passive Smoke Exposure: Never Smokeless Tobacco: Never Alcohol Use Standard Drinks/Week Comments Never 0 (1 standard drink = 0.6 oz pur e alcohol) [facility] Utilities Answer Date Recorded In the past 12 months has [employer], gas, oil, or water [employer] threatened to shut off services in your [...] week 08/05/2023 How often do you attend [facility] or bahai services? More than 4 times per year 08/05/2023 Do you belong to any clubs o r organizations such as sabianist groups, unions, fraternal or athletic groups, or [...] Total Score - Questions 1-9 0 07/13 [facility] - [...] place to sleep or slept in a care home (including now)? No 08/05/2023 Sexually Active Control [...] AM CST Medication(s) refilled and signed per [facility] Chronic Medication Refill Standing Order for Pediatricand [...] 08/05/23 Office Visit Winston Raygoza MD [facility] 02/02/23 Office Visit Winston Raygoza MD [facility] Showing recent visits within past 365 [...] Dept 08/05/23 [facility] [place] Showing recent visits within past 182 days and meeting all other requirements Future Appointments No visits were found meeting these conditions. Showing future appointments within next 90 days and meeting all other requirements Passed - Patient has established therapy with [facility] for at least 6 months R SETTER documented in this encounter Plan of Treatment Upcoming Encounters Date Type Department Care Team (Late st Contact Info) Description 08/08/2025 8:40 AM SHEAR SETTER Office Visit [facility] - [place] Care - [place] [address] [place] [address] Winston Raygoza MD [address] [place] [address] documented as of this encounter Visit Diagnoses Not on filedocumented in this encounter Additional Health Concerns Infection Onset Date Last Indicated Resolved Time Respiratory Rule-Out 07/09/2025 07/09/2025 025 8:42 AM SHEAR SETTER Assessment Noted Time PHQ-9 Depression Total Score: 0 08/05/19 24 8:03 AM SHEAR SETTER documented as of this encounter Care Teams Custom Frame Assembler Relationship Specialty Start Date End Date Winston Raygoza MD PCP - General Internal Medicine 06/15/15 documented as of this encounter
--- OUTSIDE RECORDS SUMMARY | 2025-07-11 08:06 | XMS_ITS | Clinical Summary ---
Author Organization [facility] Address [address] [place] [address] Phone Care Team Providers Care Boring Machine Feeder Name Role Phone Winston Raygoza MD Primary Care Provider [phone] Allergies No known active allergies Medications celecoxib (CeleBREX) 200 MG Capsule Take 200 mg by mouth daily. Active alendronate (FOSAMAX) 70 MG Tablet Take 1 Tablet by mouth every 7 days. 12 Tablet 3 08/07/2024 Active Vitamin D3 1000 UNIT Tablet Take 25 mcg by mouth daily. Active Calcium Carbonate-Vitami n D (OSCAL 500/200 D-3 PO) Take 1 Tablet by mouth daily. Active levothyroxine (SYNTHROID) 88 MCG Tablet Take 1 Tablet by mouth daily. 90 Tablet 3 02/06/2025 Active atorvastatin (LIPITOR) 40 MG Tablet TAKE 1 TABLET BY MOUTH EVERY DAY AT NIGHT 90 Tablet 04/23/2025 Active Active Problems Problem Noted Date Diagnosed Date Spinal stenosis of lumbar re gion without neurogenic claudication 06/14/2024 Chronic hand pain, left 02/02/2023 Low bone mass 01/13/2022 GERD without esophagitis 06/21/2020 Generalized anxiety disorder 06/01/2017 Mixed hyperlipidemia 12/05/2010 Hypothyroidism 12/05/2010 Resolved Problems Problem Noted Date Diagnosed Date Resolved Date Dysthymia 07/15/2022 08/07/2024 Encounters Date Type Department Care Team Description 07/09/2025 8:24 AM MEMORIAL MARKER DESIGNER - 07/09/2025 8:38 AM MEMORIAL MARKER DESIGNER Emergency [facility] Emergency [address] [place] [id number] Sebastian Mcdaniels DO Discharge Disposition: LWBS 07/09/2025 7:28 AM MEMORIAL MARKER DESIGNER - 07/09/2025 8:23 AM MEMORIAL MARKER DESIGNER Hospital Encounter [facility] Mammography [address] [facility] [place] [place] [address] Winston Raygoza MD Discharge Disposition: Discharged to home or Selfcare 07/09/2025 Results Follow-Up [facility] [place] [address] [place] [address] Nya Yoder, PAC JOSÉ MANUEL SCREENING BILATERAL DIGITAL W CAD W CHECO 07/07/2025 Travel 07/02/2025 Transcribe Orders [facility] Call Center [address] [place] [address] Winston Raygoza MD Visit for screening mammogram (Primary Dx) 06/30/2025 Refill [facility] - Internal [facility] - [place] [address] [place] [phone] Winston Raygoza MD Medication Refill 05/22/2025 Telephone [facility] Call Center [address] [place] [phone] Winston Raygoza MD Results 05/16/2025 Results Follow-Up [facility] [place] [address] [place] [phone] Winston Raygoza MD THYROXINE (T4) FREE, THYROID STIMULATING HORMONE (TSH), TRIIODOTHYRININE (T3) TOTAL 05/15/2025 12:40 PM MEMORIAL MARKER DESIGNER Lab [facility] [place] [address] [place] [address] Hypothyroidism, unspecified type Discharge Disposition: Discharged to home or Selfcare 05/15/2025 11:15 AM MEMORIAL MARKER DESIGNER Office Visit [facility] [place] [address] [place] [address] Yanci Del Real, INSTRUCTIONAL DESIGN TECHNOLOGIST, CORE OVEN TENDER Acute non-recurrent maxillary sinusitis (Primary Dx); Hypothyroidism, unspecified type; Blood pressure check Discharge Disposition: Discharged to home or Selfcare 05/15/2025 Travel 05/15/2025 Nurse Triage [facility] Center [address] [place] [phone] Winston Raygoza MD Advice Only; High Blood Pressure 04/22/2025 Refill [facility] Internal Medicine [facility] [address] [place] [place] [address] Winston Raygoza MD Medication Refill 04/11/2025 Refill [facility] Internal Medicine [facility] [address] [place] [address] Winston Raygoza MD Medication Refill from Last 3 Months Immunizations Immunization Administration Dates Next Due COVID-19, MRNA, LNP-S, BIVAL ENT , MODERNA, 50 MCG/0.5 ML (12+) 04/19/2023 COVID-19, MRNA, LNP-S, BIVAL ENT , PFIZER, 30 MCG/0.3 ML (12+ Y/O) 03/29/2022 COVID-19, Mrna, Lnp-s, Pf, 5 0 mcg/0.5 mL 04/19/2023 Covid-19, Mrna, Lnp-s, Pf, 3 0 Mcg/0.3 Ml Dose (Pfizer) 03/30/2022 Covid-19, Mrna, Lnp-s, Pf, Yannick-sucrose, 30 Mcg/0.3 Ml (Pfizer) 12/14/2024,03/19/2024 Influenza, High-dose, Quadrivalent 03/30,03/29/2022,04/06/2021,2019 Influenza, Quadrivalent, Adjuvanted 04/19/2023 Influenza, high-dose, trivalent, PF 11/0 11/2024,03/19/2024,04/12/2020,2019,04/04/2019,04/04/2019,04/25/2018,1 ,04/18/2017,04/17/2017, 016 Pneumococcal Vaccine - 13 Valent 03/31/2016,06/11 Pneumococcal [...] drink = 0.6 oz pur e alcohol) [facility] Utilities Answer Date Recorded In the past 12 months has [employer], gas, oil, or water [employer] threatened to shut off services in your home? No 08/07/2024 Social Connection and Isolation Panel Answer Date Recorded In a typical week, how many times do you talk on the phone with family, friends, or neighbors? More than three times a week 08/07/2024 How often do you get togethe r with friends or relatives? Once a week 08/07/2024 Attends [employer] Services Not on file 08/07 Active Member [...] Total Score - Questions 1-9 0 01/10 [facility] - Occupational Stress Questionnaire Answer Date Recorded [...] place to sleep or slept in a penitentiary (including now)? No 08/05/2023 Housing Stability Vital Sign Answer Andrew e Recorded In the last 12 months, was t here a time when you were not able to pay the mortgage or rent on time? No 08/07/2024 In the past 12 months, how m any times have you moved where you were living? 0 08/07/2024 At any time in the past [address] [facility], were you homeless or living in a penitentiary (including now)? No 08/07/2024 Sexually Active Control Partners Comments Not Currently Comments No Sex and Gender Information Value Date Recorded Sex Assigned at Not on file Legal Sex Female 9:50 PM CDT Gender Identity Not on file Sexual Orientation Not on file Last Filed Vital Signs Vital Sign Reading Time Taken Comments Blood Pressure 132/74 05/15/2025 10:51 AM MEMORIAL MARKER DESIGNER Pulse 68 05/15/2025 10:51 AM MEMORIAL MARKER DESIGNER Temperature 36.2 C (97.1 F) 05/15/2025 10:51 AM MEMORIAL MARKER DESIGNER Respiratory Rate 20 05/15/2025 10:51 AM MEMORIAL MARKER DESIGNER Oxygen Saturation 98% 05/15/2025 10:51 AM MEMORIAL MARKER DESIGNER Inhaled Oxygen Concentration - - Weight 74.2 kg (163 lb 9.6 oz) 05/15/2025 10:51 AM MEMORIAL MARKER DESIGNER Height 165.1 cm (5' 5) 05/15/2025 10:51 AM MEMORIAL MARKER DESIGNER Body Mass Index 27.22 05/15/2025 10:51 AM MEMORIAL MARKER DESIGNER Plan of Treatment Upcoming Encounters Date Type Department Care Team (Late st Contact Info) Description 08/08/2025 8:40 AM MEMORIAL MARKER DESIGNER Office Visit [facility] [place] [address] [place] [address] Winston Raygoza MD [address] [place] [address] Health Maintenance Due Date Last Done Comments Hepatitis C Virus (HCV) Screening 1950 Cologuard 1995 Immunochemical Fecal Occult Blood 1995 Medicare Initial AWV [id number] 02/10/2016 SARS-COV-2 Immunization ( season) 2025 05/16/2025, 12/14/2024, 03/19/2024, Additional history exists Colonoscopy 12/15/2025 12/16/2015 Colorectal Cancer Screening 12/15/2025 DEXA Bone Density 10/27/2026 10/27/2024, , 08/08/2021, Additional history exists Td Immunization Every 10 Years (Adults With 1 Tdap) 09/27/2032 09/27/2022 Pneumococcal Immunization (50+ years) Completed 06/27/2021, 03/31/2016, 06/21/2015, Additional history exists Pneumococcal Immunization Combined Discontinued 06/27/2021, 03/31/2016, 06/21/2015, Additional history exists DTaP/Tdap/Td Immunization Discontinued 09/27/2022 Zoster Immunization Completed 09/27/2022, 07/25/2022, 2015 Respiratory Syncytial Virus (RSV) Immunization (Adult) Completed 04/19/2023 Influenza Immunization Completed , 03/19/2024, 04/19/2023, Additional history exists Mammogram Discontinued 07/09/2025, 06/12, 04/13/2023, Additional history exists Hepatitis B Immunization Aged Out No longer eligible based on patient's age to complete this topic Human Papillomavirus (HPV) Immunization (No Doses Required) Completed Meningococcal Immunization (ACWY) Aged Out No longer eligible based on patient's age to complete this topic Rotavirus Immunization Aged Out No lo nger eligible based on patient's age to complete this topic Procedures Procedure Name Priority Date/Time Associated Diagnosis Comments [facility] SCREENING BILATERAL DIGITAL W CAD W CHECO Routine 07/09/2025 8:32 AM MEMORIAL MARKER DESIGNER Visit for screening mammogram TRIIODOTHYRININE (T3) TOTAL Routine 05/15/2025 11:16 AM MEMORIAL MARKER DESIGNER Hypothyroidism, unspecified type THYROID STIMULATING HORMONE (TSH) Routine 05/15/2025 11:16 AM MEMORIAL MARKER DESIGNER Hypothyroidism, unspecified type THYROXINE (T4) FREE Routine 05/15/2025 1 1:16 AM MEMORIAL MARKER DESIGNER Hypothyroidism, unspecified type [facility] BONE DENSITOMETRY AXIAL SKELETON Routine 10/27/2024 9:17 AM CDT Osteopenia, unspecified location Asymptomatic menopausal state from Last 3 Months or Most Recently Relevant to Health Maintenance Results * [facility] SCREENING BILATERAL DIGITAL W CAD W CHECO (07/09/2025 8:32 AM MEMORIAL MARKER DESIGNER) Anatomical Region Laterality Modality breast Bilateral Mammography 07/09/2025 8:32 AM MEMORIAL MARKER DESIGNER Impressions 07/09/2025 9:01 AM MEMORIAL MARKER DESIGNER IMPRESSION: 1. There is no mammographic evidence of malignancy. RECOMMENDATIONS: A 1 year screening mammogram is recommended. Letter sent: Mammography Normal BI-RADS: 1 - Negative. Narrative 07/09/2025 9:01 AM MEMORIAL MARKER DESIGNER Dictating Physician: Penelope Basurto MD, PhD Exam: JOSÉ MANUEL SCREENING BILATERAL DIGITAL W CAD W CHECO 07/09/2025 8:32 AM Comparison: Mammograms on 04/13/2023 and 07/06/2024. History: Routine screen. No complaints. Findings: Bilateral standard mammographic views were obtained. Additional 3-D tomographic mammography was also obtained. Current study was also evaluated with a Computer Aided Detection (CAD) system. The breasts are heterogeneously dense, which may obscure small masses. No suspicious masses, calcifications, or other significant findings are seen. There has been no significant interval change. Winston Raygoza MD IMG MAMMO ORDERABLES Final Result * THYROXINE (T4) FREE (05/15/2025 11:16 AM MEMORIAL MARKER DESIGNER) T4 FREE 1.0 0.7 - 1.9 ng/dL 05/15/2025 1:46 PM MEMORIAL MARKER DESIGNER [facility] Blood Venipuncture / Unknown 05/15/2025 11:16 AM MEMORIAL MARKER DESIGNER 05/15/2025 11:16 AM MEMORIAL MARKER DESIGNER Winston Raygoza MD CHEMISTRY ORDERABLES Final Result [facility] [address] [place] [address] * THYROID STIMULATING HORMONE (TSH) (05/15/2025 11:16 AM MEMORIAL MARKER DESIGNER) TSH 0.725 0.300 - 5.000 mIU/L 05/15/2025 1:46 PM MEMORIAL MARKER DESIGNER [facility] Blood Venipuncture / Unknown 05/15/2025 11:16 AM MEMORIAL MARKER DESIGNER 05/15/2025 11:16 AM MEMORIAL MARKER DESIGNER us Winston Raygoza MD CHEMISTRY ORDERABLES Final Result [facility] [address] [place] [address] * TRIIODOTHYRININE (T3) TOTAL (05/15/2025 11:16 AM MEMORIAL MARKER DESIGNER) T3 77 40 - 193 ng/dL 05/16/2025 12:57 AM MEMORIAL MARKER DESIGNER [facility] Blood Venipuncture / Unknown 05/15/2025 11:16 AM MEMORIAL MARKER DESIGNER 05/15/2025 11:16 AM MEMORIAL MARKER DESIGNER Winston Raygoza MD CHEMISTRY ORDERABLES Final Result Performing Organization Address City/[facility] Co de Phone Number [facility] [address] [place] [address], * [facility] BONE DENSITOMETRY AXIAL SKELETON (10/27/2024 9:17 AM CDT) Anatomical Region Laterality Modality BODY N/A Computed Radiogr aphy 10/28/2024 6:06 AM CDT Impressions 10/28/2024 6:09 AM CDT IMPRESSION: Low bone mass REFERENCE: Bone mineral density: T-Score: Normal (T-score above or = -1.0) Low bone mass (T-score between -1.0 and -2.5) replaces the previously used term osteopenia Osteoporosis (T-score = or below -2.5) Z-Score: Within the expected range for age (Z-score above -2.0) Below the expected range for age (Z-score is -2.0 or below) Please see below follow up recommendations. Medical evaluation for secondary causes of low bone mineral density may be appropriate. FRAX is a World Health Organization validated fracture risk assessment tool that calculates a person's 10 year probability of a major osteoporosis related fracture and hip fracture. According to the National Osteoporosis Foundation guidelines, postmenopausal women and men age 50 or older with low bone mass and a 10 year probability of a major osteoporosis related fracture = or greater than 20% or a 10 year probability of a hip fracture = or greater than 3% should be considered for pharmacological treatment for the prevention of osteoporosis. For further information, including treatment recommendations, please refer to the 2019 ISCD Official Positions (http://www.iscd.org) and the NOF's Clinician's Guide to Prevention and Treatment of Osteoporosis (http://www.nof.org/professionals/clinical-guidelines) Narrative 10/28/2024 6:09 AM CDT EXAM DESCRIPTION: JOSÉ MANUEL BONE DENSITOMETRY AXIAL SKELETON REASON FOR STUDY: 74 y/o year old F with given history of: Postmenopausal status. Patient currently takes Fosamax, multivitamin and calcium. History of parent with hip fracture. Stencil Sprayer/Model: BigBad (S/N [id number]) Facility LSC value of 0.028 for the AP spine and 0.033 for the femur. CLINICAL INFORMATION: Current height: 65 inches Maximum height: 65 inches Weight: 176.6 pounds Risk factors: Parent with hip fracture COMPARISON: None available FINDINGS: AP LUMBAR SPINE L1-L4: Total BMD is 1.356 g/cm2 T-score is 1.3 LEFT HIP: Total BMD is 0.817 g/cm2 T-score is -1.5 Femoral neck BMD is 0.723 g/cm2 T-score is -2.3 FRAX: 10 year risk for a major osteoporotic fracture is 26.2 %, 10 year risk for a hip fracture is 15.7 % Per National Osteoporosis Foundation guidelines, this patient does meet the criteria for pharmacological treatment of patients with FRAX 10 year major osteoporotic fracture risk scores of = or greater than 20% or a 10 year probability of a hip fracture = or greater than 3%, to reduce fracture risk. Additional factors such as frequent falls are not represented in FRAX and warrant individual clinical judgment. THIS IS AN ELECTRONICALLY VERIFIED FINAL REPORT 10/28/2024 6:06 AM - Electronically signed by Noreen Parada M.D. TW: LEATHA Report ID: [id number] Reading Location: [id number] Procedure Note Noreen Parada MD - 10/28/2024 EXAM DESCRIPTION: [facility] BONE DENSITOMETRY AXIAL SKELETON REASON FOR STUDY: 74 y/o year old F with given history of: Postmenopausal status. Patient currently takes Fosamax, multivitamin and calcium. History of parent with hip fracture. Stencil Sprayer/Model: BigBad (S/N [id number]) Facility LSC value of 0.028 for the AP spine and 0.033 for the femur. CLINICAL INFORMATION: Current height: 65 inches Maximum height: 65 inches Weight: 176.6 pounds Risk factors: Parent with hip fracture COMPARISON: None available FINDINGS: AP LUMBAR SPINE L1-L4: Total BMD is 1.356 g/cm2 T-score is 1.3 LEFT HIP: Total BMD is 0.817 g/cm2 T-score is -1.5 Femoral neck BMD is 0.723 g/cm2 T-score is -2.3 FRAX: 10 year risk for a major osteoporotic fracture is 26.2 %, 10 year risk for a hip fracture is 15.7 % Per National Osteoporosis Foundation guidelines, this patient does meet the criteria for pharmacological treatment of patients with FRAX 10 year major osteoporotic fracture risk scores of = or greater than 20% or a 10 year probability of a hip fracture = or greater than 3%, to reduce fracture risk. Additional factors such as frequent falls are not represented in FRAX and warrant individual clinical judgment. THIS IS AN ELECTRONICALLY VERIFIED FINAL REPORT 10/28/2024 6:06 AM - Electronically signed by Noreen Parada M.D. TW: TW Report ID: [id number] Reading Location: [place] [address] IMPRESSION: Low bone mass REFERENCE: Bone mineral density: T-Score: Normal (T-score above or = -1.0) Low bone mass (T-score between -1.0 and -2.5) replaces the previously used term osteopenia Osteoporosis (T-score = or below -2.5) Z-Score: Within the expected range for age (Z-score above -2.0) Below the expected range for age (Z-score is -2.0 or below) Please see below follow up recommendations. Medical evaluation for secondary causes of low bone mineral density may be appropriate. FRAX is a World Health Organization validated fracture risk assessment tool that calculates a person's 10 year probability of a major osteoporosis related fracture and hip fracture. According to the National Osteoporosis Foundation guidelines, postmenopausal women and men age 50 or older with low bone mass and a 10 year probability of a major osteoporosis related fracture = or greater than 20% or a 10 year probability of a hip fracture = or greater than 3% should be considered for pharmacological treatment for the prevention of osteoporosis. For further information, including treatment recommendations, please refer to the 2019 ISCD Official Positions (http://www.iscd.org) and the NOF's Clinician's Guide to Prevention and Treatment of Osteoporosis (http://www.nof.org/professionals/clinical-guidelines) Winston Raygoza MD IMG DEXA ORDERABLES Final R esult from Last 3 Months or Most Recently Relevant to Health Maintenance Insurance MED[employer]ARE [facility] Care Teams Boring Machine Feeder Relationship Specialty Start Date End Date Winston Raygoza MD PCP - General Internal Medicine 06/15/15
[2025-07-11 08:07] VITALS: BP 144/69; PULSE 71; RESP 16; TEMP 36.6; O2SAT 100
[2025-07-11 08:24] LABS: EDCOVIDSCREEN Positive (Negative); EDINFLUASCREEN Negative (Negative); EDINFLUBSCREEN Negative (Negative)
--- NOTE | 2025-07-11 08:26 | ED_ITS ---
HPI - URI/Sore Throat General Chief Complaint: Upper Respiratory Infection Stated Complaint: throat/head congestion Time Seen by Provider: 07/11/25 08:21 Source: patient and RN notes reviewed Mode of arrival: ambulatory Limitations: no limitations History of Present Illness HPI Narrative: 75-year-old female patient presents today complaining of 4 day history of productive cough, sore throat, nasal congestion and sinus pressure. Denies fever or shortness of breath. She has been taking Mucinex, Flonase, and use a humidifier with some improvement. No history of asthma or COPD. She does not smoke Related Data Home Medications ?Medication ?Instructions ?Recorded ?Confirmed ?Last Taken ?Type alendronate 70 mg tablet mg PO 10/08/24 Unknown Hist ory atorvastatin 40 mg tablet mg 10/08/24 Unknown History celecoxib 200 mg capsule mg 10/08/24 Unknown History levothyroxine 100 mcg tablet mcg 10/08/24 Unknown His tory omeprazole 20 mg capsule,delayed mg 10/08/24 Unknown History release sertraline 25 mg tablet mg 07/11/25 Unknown History Allergies Allergy/AdvReac Type Severity Reaction Status Date / Time No Known Allergies Allergy Verified 07/11/25 08:05 REPLACED BY [facility] Past Medical History Medical History (Updated 07/11/25 @ 08:29 by Brissa Rivera, HUMAN RESOURCES ASSISTANT MANAGER, FINAL FINISHER FORGING DIES) GERD (gastroesophageal reflux disease) Hypothyroidism Hypercholesterolemia Comments At time of signature, I have reviewed and agree with nursing past medical, surgical, social and family history unless otherwise noted. Please see nursing chart for further information. There is no relevant family history pertinent to the presenting complaint Exam Narrative: GENERAL: Well-appearing, well-nourished, and in no acute distress. HEAD: Normocephalic, atraumatic. EYES: EOMI. No redness or drainage. Conjunctivae normal. ENT: Mucous membranes pink and moist. Nares congested with rhinorrhea. TMs normal bilaterally. Throat mildly erythematous without edema or exudate. Uvula midline. NECK: Normal AROM. Supple. No lymphadenopathy. CHEST: No respiratory distress. Clear to auscultation. HEART: Regular rate and rhythm. No murmur appreciated. EXTREMITIES: Normal range of motion. No edema. SKIN: Warm, dry, no rash. Capillary refill normal. Normal skin turgor. NEURO: No focal deficits. Alert and oriented x3. Gait steady. PSYCH: Normal affect. No signs of depression or anxiety. Course Course Level of Care: Express Care Visit Vital Signs Vital signs: Vital Signs Temperature 98 F 07/11/25 08:07 Pulse Rate 71 07/11/25 08:07 Respiratory Rate 16 07/11/25 08:07 Blood Pressure 144/69 H 07/11/25 08:07 Pulse Oximetry 100 07/11/25 08:07 Oxygen Delivery Room Air 07/11/25 08:07 Temperature 98 F 07/11/25 08:07 Pulse Rate 71 07/11/25 08:07 Respiratory Rate 16 07/11/25 08:07 Blood Pressure 144/69 H 07/11/25 08:07 Pulse Oximetry 100 07/11/25 08:07 Oxygen Delivery Room Air 07/11/25 08:07 Reviewed [facility] Narrative Medical decision making narrative: 75-year-old female patient presents today complaining of 4 day history of productive cough, sore throat, nasal congestion and sinus pressure. Denies fever or shortness of breath. She has been taking Mucinex, Flonase, and use a humidifier with some improvement. No history of asthma or COPD. She does not smoke. Upon exam, patient is mildly ill appearing with nasal congestion, rhinorrhea, and a mildly erythematous throat. Influenza negative, COVID positive. This patient will continue to treat with [id number]-[id number] medication as this has been helpful. She is stable for outpatient treatment with no red flag symptoms that would warrant a transfer to the hospital. Patient agrees with plan. Vital signs stable. Anticipatory guidance given. ED precautions given. Differential Diagnosis Differential Diagnosis: URI, pharyngitis, COVID, influenza Lab Data [facility] Lab Attestation statement: I personally reviewed the patient's lab results. Labs: Lab Results 07/11/25 Range/Units 08:23 POC Influenza A Ag Negative (Negative) POC Influenza B Ag Negative (Negative) POC SARS CoV-2 Ag Positive (Negative) Critical Care Time Critical Care Time Critical Care Time: No Discharge Plan Discharge Clinical Impression: COVID-19 Patient Disposition: Home Condition: Stable Instructions: COVID-19 (Coronavirus Disease 2019) (ED) Additional Instructions: Your COVID-19 test is positive today. Your influenza test is negative. Continue [id number] medication for symptoms as needed. As discussed, if symptoms worsen to include development of new fever greater than 100.3, shortness of breath, chest pain, please go to the ER immediately for further evaluation. Patient Language: Tunisian Prescriptions: No Action sertraline 25 mg tablet celecoxib 200 mg capsule atorvastatin 40 mg tablet alendronate 70 mg tablet PO levothyroxine 100 mcg tablet omeprazole 20 mg capsule,delayed release(DR/EC) fluticasone propionate [Flonase Allergy Relief] 50 mcg/actuation spray,suspension 1 spray intranasal BID Qty: 16 0RF Rx Instructions: administer into each nostril Follow-up/Referrals: Jaret,Winston Wilson MD [Primary Care Provider, Unknown] Time of Disposition: 08:29
== END 2025-07-11 08:35 | disposition home or self-care (01) ==
PROVIDERS: Emergency Provider Nurse Practitioner; PCP Internal Medicine
DX: U07.1 COVID-19 (principal); K21.9 Gastro-esophageal reflux disease without esophagitis; E03.9 Hypothyroidism, unspecified; E78.00 Pure hypercholesterolemia, unspecified
CPT/HCPCS: 87426; 87804; 99213; G0463